=== PATIENT | female | born 1995 | race Hispanic/Latino ===

== ENCOUNTER 2022-11-15 05:59 | Inpatient (IN) | payer BC, SELFPAY ==
[2022-11-15] VITALS (213 sets, daily range): BP systolic 71–136; BP diastolic 39–94; PULSE 53–256; RESP 16–18; TEMP 36.3–37.3; O2SAT 79–100; BMI 31.6
[2022-11-15 06:45] LABS: Basophils Absolute Auto 0.1 K/mm3 (0.0-0.1); Basophils Percent Auto 0.6 % (0.2-1.2); Eosinophils Absolute Auto 0.1 K/mm3 (0-0.3); Eosinophils Percent Auto 1.1 % (0-4.4); Hematocrit 36.7 % (37.0-47.0); Hemoglobin 12.1 g/dL (12.0-15.0); Lymphocytes Percent Auto 12.6 % (18.3-44.2); Mean Corpuscular Hemoglobin 31.7 pg (26-34); Mean Corpuscular Volume 96.1 fl (80-100); Mean Platelet Volume 10.1 fl (7.4-10.4); Monocytes Absolute Auto 0.6 K/mm3 (0.1-0.6); Monocytes Percent Auto 5.7 % (2.6-8.5); Neutrophils Absolute Auto 8.1 K/mm3 (1.3-6.7); Platelet Count Result 233 k/mm3 (150-375); Red Blood Count 3.82 M/mm3 (4.2-5.4); Red Cell Distribution Width 15.4 % (11.5-14.5); White Blood Count 10.3 K/mm3 (4.5-10.0)
[2022-11-15] MEDS: LACTATED RINGERS 1,000 ML 125 ML IV CONT ×5 (07:10→18:26)
[2022-11-15] MEDS: OXYTOCIN 30 UNITS/NS 500 ML 30 UNITS/500 ML BAG 6 UNITS IV CONT (07:11)
--- NOTE | 2022-11-15 07:27 | LDADM ---
This patient, Calista Parks, was admitted to Labor/Delivery/Recovery 106 on 11/15/22 at 05:59. Plans for labor, pain management and were discussed with patient. Patient/family oriented to hospital policies and general routines including ID bracelet, bed and alarms, visiting hours, pain management, procedures, bathroom and other care routines, personal items, smoking policy, room service/diet and guest tray routines, security routines, and visiting hours. Patient/Family are encouraged to report perceived risks to care and to ask questions if they do not understand what they are told or what they should do. See OBIX for further documentation.
--- NOTE | 2022-11-15 08:11 | PM.IMHP ---
H&P: HPI History of Present Illness Date/Time: 11/15/22 08:11 Chief Complaint: Induction of labor Narrative: Patient admitted for MIL. She is at 40 weeks with an EDC 11/15/22 by LMP 02/08/22 consistent with second trimester ultrasound. PNC significant for asthma which has been controlled since starting on steroid inhaler in second trimester. She also had a second trimester ultrasound which showed possible ASD, subsequent echo negative for septal defect. Labs reviewed. GBS neg. She has been informed of risk benefits of induction vs spontaneous labor and risk of prolonged gestation. She has opted for social induction at 40 weeks. Review of Systems Review of Systems: All systems reviewed & are unremarkable except as noted in HPI and below Constitutional: Constitutional: Reports no additional constitutional complaints and Denies headache(s) Eyes: Eyes: Denies spots in vision ENT: Reports system reviewed and no additional complaints, except as documented and Denies headache(s) Cardiovascular: Cardiovascular: Denies chest pain and Denies dyspnea Respiratory: Respiratory: Denies dyspnea Gastrointestinal: Gastrointestinal: Reports no additional gastrointestinal complaints Genitourinary: Genitourinary: Reports amenorrhea Musculoskeletal: Musculoskeletal: Reports no additional musculoskeletal complaints Integumentary/Breasts: Skin/Breast: Denies breast mass and Denies rash Neurologic: Denies headache(s) Psychiatric: Psychiatric: Reports no additional psychiatric complaints [facility] Past Medical History Medical History Allergies Family History Family History Grandparent Heart disease Other Diabetes mellitus Other History of cancer Father Hypertension Mother Thyroid disease Social History Social History Smoking status: Never smoker Alcohol intake: never Substance use: never Substance use type: does not use Lack of Transportation: No Lack of Food: Never True Current Housing: I Have Housing Concerned About Future Housing: No Difficulty Paying Gas/Electric Bills: No Difficulty Paying for Meds: No Currently Unemployed: No Education: Associate Degree Difficulty w/ Childcare or Family Care: No Living arrangements: with family Gender identity (if verbalized by the patient): Female Sexual Orientation (if Verbalized by the Patient): Straight or Heterosexual Spiritual care concerns: No Meds Home Medications and Allergies Home Medications Medication Instructions Recorded Confirmed Type prenat.vits,arminda,xem-[id number]-[id number] 1 tablet PO DAILY 05/19/22 09/22/22 History albuterol sulfate 90 mcg/actuation 2 puff inhalation Q4H PRN 07/15/22 09/22/22 Rx aerosol inhaler (ProAir HFA) shortness of breath or wheezing #8.5 grams fluticasone propionate 110 1 puff inhalation Q12H #12 grams 08/12/22 09/22/22 Rx mcg/actuation HFA aerosol inhaler (Flovent HFA) inhalational spacing device #1 ea 08/12/22 09/22/22 Rx ferrous sulfate 325 mg (65 mg 650 mg PO DAILY 09/23/22 History iron) tablet (Feosol) aspirin 81 mg tablet 81 mg PO DAILY 10/30/22 10/30/22 History levocetirizine 5 mg tablet (Xyzal) 5 mg PO DAILY 10/30/22 10/30/22 History Allergies Allergy/AdvReac Type Severity Reaction Status Date / Time No Known Allergies Allergy Verified 11/11/22 14:21 Vital Signs Vital Signs - 24 hr 11/15/22 07:10 11/15/22 07:15 11/15/22 07:30 Pulse Rate 87 92 87 Blood Pressure 126/84 136/85 116/68 Oxygen Delivery 11/15/22 07:45 11/15/22 08:00 11/15/22 07:26 Pulse Rate 89 79 Blood Pressure 99/83 L 96/55 L Oxygen Delivery Room Air Exam Const: General: no acute distress Eyes: General: appearance normal, both eyes and all related structures Resp: Effort & Inspection: normal respiratory eff
--- NOTE | 2022-11-15 08:15 | PM.OBPNLAB ---
Pain Control Date/time seen: 11/15/22 08:15 heart tones 140s category 1 irregular contractions mild cervix to 60 minus 2 AROM clear.
[2022-11-15 10:03] LABS: Rapid Plasma Reagin Non-Reactive (NonReactive)
--- NOTE | 2022-11-15 13:47 | WPDANESEPP ---
Anes - Eval Pre Procedure Procedure: Labor Epidural Date/Time: 11/15/22 13:47 Surgeon: Kathe Preop Diagnosis: Labor pain Pre Op Diagnosis: Induction of Labor Patient Data Age: 27 Gender: F Height: 1.57 m Weight: 78.5 kg Last Vital Signs Pulse 92 11/15/22 13:45 BP 114/71 11/15/22 13:45 Pulse Ox 100 11/15/22 13:43 O2 Del Method Room Air 11/15/22 07:26 Allergies Allergy/AdvReac Type Severity Reaction Status Date / Time No Known Allergies Allergy Verified 11/11/22 14:21 Home Medications Medication Instructions Recorded Confirmed Type prenat.vits,arminda,[id number]-uhbr-dwrha 1 tablet PO DAILY 05/19/22 09/22/22 History albuterol sulfate 90 mcg/actuation 2 puff inhalation Q4H PRN 07/15/22 09/22/22 Rx aerosol inhaler (ProAir HFA) shortness of breath or wheezing #8.5 grams fluticasone propionate 110 1 puff inhalation Q12H #12 grams 08/12/22 09/22/22 Rx mcg/actuation HFA aerosol inhaler (Flovent HFA) inhalational spacing device #1 ea 08/12/22 09/22/22 Rx ferrous sulfate 325 mg (65 mg 650 mg PO DAILY 09/23/22 History iron) tablet (Feosol) aspirin 81 mg tablet 81 mg PO DAILY 10/30/22 10/30/22 History levocetirizine 5 mg tablet (Xyzal) 5 mg PO DAILY 10/30/22 10/30/22 History Laboratory Tests 11/15/22 11/15/22 11/15/22 06:33 06:33 06:33 WBC 10.3 K/mm3 H K/mm3 (4.5-10.0) RBC 3.82 M/mm3 L M/mm3 (4.2-5.4) Hgb 12.1 g/dL g/dL (12.0-15.0) Hct 36.7 % L % (37.0-47.0) MCV 96.1 fl fl (80-100) MCH 31.7 pg pg (26-34) MCHC 33.0 g/dl g/dl (32-36) RDW 15.4 % H % (11.5-14.5) Plt Count 233 k/mm3 k/mm3 (150-375) MPV 10.1 fl fl (7.4-10.4) Immature Gran % (Auto) 1.0 % H % (0-0.5) Neut % (Auto) 79.0 % H % (45.5-73.1) Lymph % (Auto) 12.6 % L % (18.3-44.2) [place] % (Auto) 5.7 % % (2.6-8.5) Eos % (Auto) 1.1 % % (0-4.4) Baso % (Auto) 0.6 % % (0.2-1.2) Lymph # (Auto) 1.30 K/mm3 K/mm3 (0.9-3.2) [place] # (Auto) 0.6 K/mm3 K/mm3 (0.1-0.6) Eos # (Auto) 0.1 K/mm3 K/mm3 (0-0.3) Baso # (Auto) 0.1 K/mm3 K/mm3 (0.0-0.1) Abs Immat Gran (auto) 0.10 K/mm3 H K/mm3 (0.00-0.031) Absolute Neuts (auto) 8.1 K/mm3 H K/mm3 (1.3-6.7) Absolute Nucleated RBC 0.0 K/mm3 K/mm3 (0.0-0.012) Nucleated RBC % 0.0 % % (0.0-0.2) RPR Non-reactive (NonReactive) Blood Type A Positive Antibody Screen Negative : gestational age (VIJAY 11/15/22, ) Patient hx anesthesia problems: none Family hx anesthesia problems: none Results Review: All pre-operative results and documents have been reviewed as part of the pre-operative evaluation. [facility] Past Medical History Medical History Allergies Family History Family History Grandparent Heart disease Other Diabetes mellitus Other History of cancer Father Hypertension Mother Thyroid disease Social History Social History Smoking status: Never smoker Alcohol intake: never Substance use: never Substance use type: does not use Lack of Transportation: No Lack of Food: Never True Current Housing: I Have Housing Concerned About Future Housing: No Difficulty Paying Gas/Electric Bills: No Difficulty Paying for Meds: No Currently Unemployed: No Education: Associate Degree Difficulty w/ Childcare or Family Care: No Living arrangements: with family Gender identity (if verbalized by the patient): Female Sexual Orientation (if Verbalized by the Patient): Straight or Heterosexual Spiritual care concerns: No Exam Day of Procedure 11/15/22 13:47 Patient weight: normal
--- NOTE | 2022-11-15 16:11 | P.PNOB_ITS ---
OB - PN: Subj Subjective Date/time seen: 11/15/22 16:11 Interval history: FHT 125-130, Cat 1, Irreg ctx. Continue Pitocin. OB - PN: Obj Data Labs 11/15/22 06:33 Labs: Laboratory Results - last 24 hr 11/15/22 11/15/22 11/15/22 06:33 06:33 06:33 WBC 10.3 H RBC 3.82 L Hgb 12.1 Hct 36.7 L MCV 96.1 MCH 31.7 MCHC 33.0 RDW 15.4 H Plt Count 233 MPV 10.1 Immature Gran % (Auto) 1.0 H Neut % (Auto) 79.0 H Lymph % (Auto) 12.6 L [place] % (Auto) 5.7 Eos % (Auto) 1.1 Baso % (Auto) 0.6 Lymph # (Auto) 1.30 [place] # (Auto) 0.6 Eos # (Auto) 0.1 Baso # (Auto) 0.1 Abs Immat Gran (auto) 0.10 H Absolute Neuts (auto) 8.1 H Absolute Nucleated RBC 0.0 Nucleated RBC % 0.0 RPR Non-reactive Blood Type A Positive Antibody Screen Negative OB - PN A/P Time Spent With Patient Time: Total time spent is greater than 50% in coordination of care (as documented) at patient's floor/unit and/or counseling patient:
[2022-11-15] MEDS: ONDANSETRON INJ 4 MG/2 ML VIAL IV PUSH (20:30)
[2022-11-16] VITALS (281 sets, daily range): BP systolic 67–191; BP diastolic 26–149; PULSE 35–200; RESP 14–21; TEMP 36.2–37.4; O2SAT 72–100
[2022-11-16] MEDS: ACETAMINOPHEN 500 MG TABLET 1000 MG PO (01:20)
[2022-11-16] MEDS: AMPICILLIN 2 GM/NS 100 ML 2 GM/100 ML BAG IVPB (02:35)
[2022-11-16] MEDS: LACTATED RINGERS 1,000 ML 125 ML IV CONT (03:15)
--- NOTE | 2022-11-16 06:13 | PM.OBPNVD ---
OB - PN: Subj Subjective Date/time seen: 11/15/22-2129 fht 150, Cat 2, cervix /-2, IUPC placed. Continue pitocin. OB - PN: Obj Data Labs 11/15/22 06:33 Labs: Laboratory Results - last 24 hr 11/15/22 11/15/22 11/15/22 06:33 06:33 06:33 WBC 10.3 H RBC 3.82 L Hgb 12.1 Hct 36.7 L MCV 96.1 MCH 31.7 MCHC 33.0 RDW 15.4 H Plt Count 233 MPV 10.1 Immature Gran % (Auto) 1.0 H Neut % (Auto) 79.0 H Lymph % (Auto) 12.6 L [place] % (Auto) 5.7 Eos % (Auto) 1.1 Baso % (Auto) 0.6 Lymph # (Auto) 1.30 [place] # (Auto) 0.6 Eos # (Auto) 0.1 Baso # (Auto) 0.1 Abs Immat Gran (auto) 0.10 H Absolute Neuts (auto) 8.1 H Absolute Nucleated RBC 0.0 Nucleated RBC % 0.0 RPR Non-reactive Blood Type A Positive Antibody Screen Negative OB - PN A/P Time Spent With Patient Time: Total time spent is greater than 50% in coordination of care (as documented) at patient's floor/unit and/or counseling patient:
[2022-11-16] MEDS: AMPICILLIN 1 GM/NS 50 ML 1 GM/50 ML BAG IVPB ×3 (06:36→22:48)
[2022-11-16] MEDS: ONDANSETRON INJ 4 MG/2 ML VIAL IV PUSH (07:39)
--- NOTE | 2022-11-16 08:51 | PM.OBPNVD ---
OB - PN: Subj Subjective Date/time seen: 11/16/22 08:51 Interval history: FHT 140, Cat 1, irreg ctx, cervix /-1. Continue Pitocin. OB - PN: Obj Data Labs 11/15/22 06:33 Labs: Laboratory Results - last 24 hr 11/15/22 06:33 RPR Non-reactive OB - PN A/P Time Spent With Patient Time: Total time spent is greater than 50% in coordination of care (as documented) at patient's floor/unit and/or counseling patient:
--- NOTE | 2022-11-16 13:06 | PM.OBPNVD ---
OB - PN: Subj Subjective Date/time seen: 11/16/22 13:06 Interval history: FHT 150 cat 1, cervix small anterior rim, reduces with pushing, 0 station, will continue Pitocin. OB - PN: Obj Data Labs 11/15/22 06:33 OB - PN A/P Time Spent With Patient Time: Total time spent is greater than 50% in coordination of care (as documented) at patient's floor/unit and/or counseling patient:
--- NOTE | 2022-11-16 16:37 | PM.OBPNVD ---
OB - PN: Subj Subjective Date/time seen: 11/16/22 8518 Interval history: +FHT 150 cat 2, Patient pushed for two hours, with pushing descends to +1 but returns to 0, she was recommended for for failure to progress. Discussed risk benefit of section after labor and risk of continuing to push. She agrees to section. OB - PN: Obj Data Labs 11/15/22 06:33 OB - PN A/P Time Spent With Patient Time: Total time spent is greater than 50% in coordination of care (as documented) at patient's floor/unit and/or counseling patient:
[2022-11-16] MEDS: miSOPROStol 200 MCG TABLET 1000 MCG (17:20)
--- NOTE | 2022-11-16 17:48 | W.PM.PROC2 ---
Procedure Note - Detailed Date of Procedure 11/16/22 Pre-op Diagnosis Induction of Labor Post-op Diagnosis Other (Failure to progress) Procedure Performed Primary low transverse section Surgeon Juanjo Archuleta MD Anesthesia Epidural Indications Failure to descend Findings Male infant, 8lb 10 oz, ROT Description of Procedure After informed consent, risks and benefits of the procedure was discussed with the patient. The patient was taken to the operating room where she was placed in the dorsal lithotomy position with leftward tilt. After the prior placed epidural anesthesia was found to be adequate, she was then prepped and draped in the usual sterile fashion. A Pfannenstiel skin incision was made with a scalpel and carried through to the underlying layer of fascia. The fascia was then incised in the midline, extending bilaterally. The fascia was dissected off the rectus muscles bluntly and sharply, superiorly and inferiorly. The rectus muscles were in the midline, and peritoneum was identified and entered bluntly. The pelvic organs were visualized. The bladder blade was then inserted. The vesicouterine peritoneum was identified and entered sharply with Metzenbaum scissors and extended bilaterally and then the bladder flap was created digitally. The low transverse uterine incision was then made with the scalpel and extended with bilateral index fingers in a crescent-shaped fashion. The head was delivered two loose nuchal cords were manually reduced and the rest of the was delivered. The nose and mouth suctioned. The cord was clamped twice and cut. The infant was then handed off to the awaiting pediatric staff. The placenta was then delivered manually. The uterine cavity was sponge curretted. The placental membranes were adherent to cavity. The membranes were removed with ring forceps and sponge curretts until no membranes were visualized in the cavity.The uterine tone was minimal. Uterus was vigorously massage. She had 40units Pitocin in her bag. Instructed anesthesia to administer 0.2mg Methergine IM. Tone improve slightly. 1000ucg of Cytotec was inserted rectally. She was given Trenexamic acid. Uterine tone improved to good. The uterus was then exteriorized. The uterine incision was then closed with 0 vicryl in a running locked fashion. A figure of eight of 0 vicryl at the right of incision was used for hemostasis. Hemostasis noted. A second layer of 0 vicryl was used in an imbricating fashion for hemostasis. A figure of eight 0 vicryl was used for hemostasis. Hemostasis noted. The uterus was then returned to the abdomen. Bilateral gutters were cleared off all clots and debris. The uterine incision was noted to be hemostatic. Interceed placed on uterine incision and vertically on front of uterus. The muscle bellies were inspected and noted to be hemostatic. The subfascial layer was noted to be hemostatic, and the fascia was closed with 0 Vicryl in a running fashion. The subcutaneous layer was then closed with 3-0 Vicryl in a subcutaneous fashion. The skin was closed with dissolveable sree. Skin dermabond applied at incision. All instruments, needle, and lap counts were correct x3. The patient was taken to the recovery room in stable condition. Estimated Blood Loss 1,065 Urine Output 100 Drains No Packing No Pathology Yes (placenta and cord) Complications No immediate complications Condition Stable Disposition Floor [facility] Billing Surgery - Charge Forward: Surgery Billing
[2022-11-16] MEDS: TRANEXAMIC ACID 1,000MG/ISO100 1,000 MG/100 ML BAG 200 MG IVPB (19:31)
--- NOTE | 2022-11-16 20:35 | OBPPTRN ---
Patient transferred to post room #286 via Stretcher. Support person present. Oriented to unit, room, information board, rooming in, admission packet and security measures. Patient verbalizes understanding.
[2022-11-16] MEDS: DEXTROSE 5%/0.45% SOD CHL 1,000 ML 125 ML IV CONT (22:48)
[2022-11-16] MEDS: CLINDAMYCIN 900 MG/D5W 50 ML 900 MG/50 ML PIGGYBACK 50 MG IVPB (23:20)
[2022-11-16] MEDS: METHYLERGONOVINE MALEATE 0.2 MG TABLET PO (23:20)
[2022-11-17 04:58] VITALS: BP 119/76; PULSE 86; RESP 18; TEMP 36.9; O2SAT 99
[2022-11-17] MEDS: KETOROLAC 30 MG/ML VIAL (*BKC) IV PUSH (05:00)
[2022-11-17] MEDS: METHYLERGONOVINE MALEATE 0.2 MG TABLET PO (05:00)
[2022-11-17] MEDS: AMPICILLIN 1 GM/NS 50 ML 1 GM/50 ML BAG IVPB (05:00)
[2022-11-17 05:27] LABS: Basophils Absolute Auto 0.1 K/mm3 (0.0-0.1); Basophils Percent Auto 0.5 % (0.2-1.2); Eosinophils Absolute Auto 0.1 K/mm3 (0-0.3); Eosinophils Percent Auto 0.2 % (0-4.4); Hematocrit 34.3 % (37.0-47.0); Hemoglobin 11.4 g/dL (12.0-15.0); Immature Granulocyte Absolute 0.13 K/mm3 (0.00-0.031); Immature Granulocyte Percent A 0.5 % (0-0.5); Lymphocytes Absolute Auto 1.06 K/mm3 (0.9-3.2); Lymphocytes Percent Auto 4.5 % (18.3-44.2); Mean Corpuscular HGB Conc 33.2 g/dl (32-36); Mean Corpuscular Hemoglobin 31.9 pg (26-34); Mean Corpuscular Volume 96.1 fl (80-100); Mean Platelet Volume 10.3 fl (7.4-10.4); Monocytes Absolute Auto 1.2 K/mm3 (0.1-0.6); Monocytes Percent Auto 5.2 % (2.6-8.5); Neutrophils Absolute Auto 21.1 K/mm3 (1.3-6.7); Neutrophils Percent Auto 89.1 % (45.5-73.1); Platelet Count Result 223 k/mm3 (150-375); Red Blood Count 3.57 M/mm3 (4.2-5.4); Red Cell Distribution Width 15.4 % (11.5-14.5); White Blood Count 23.7 K/mm3 (4.5-10.0)
[2022-11-17 07:50] VITALS: BP 105/73; PULSE 75; RESP 16; TEMP 37; O2SAT 96
--- NOTE | 2022-11-17 08:08 | P.PNOB_ITS ---
OB - PN: Subj Subjective Date/time seen: 11/17/22 08:08 Interval history: She states pain is 2/10 laying down when she moves increases to 8. Minimal lochia. Has not set up in a chair. No nausea. No flatus no leg pain. OB - PN: Obj Data Labs 11/17/22 04:30 Labs: Laboratory Results - last 24 hr 11/17/22 04:30 WBC 23.7 H RBC 3.57 L Hgb 11.4 L Hct 34.3 L MCV 96.1 MCH 31.9 MCHC 33.2 RDW 15.4 H Plt Count 223 MPV 10.3 Immature Gran % (Auto) 0.5 Neut % (Auto) 89.1 H Lymph % (Auto) 4.5 L [place] % (Auto) 5.2 Eos % (Auto) 0.2 Baso % (Auto) 0.5 Lymph # (Auto) 1.06 [place] # (Auto) 1.2 H Eos # (Auto) 0.1 Baso # (Auto) 0.1 Abs Immat Gran (auto) 0.13 H Absolute Neuts (auto) 21.1 H Absolute Nucleated RBC 0.0 Nucleated RBC % 0.0 OB - PN A/P Assessment and Plan (1) Status post section: Code(s): Z98.891 - History of uterine scar from previous surgery Status: Acute Plan POD1 s/p Primary c/s for failure to descend. She is doing well. Encourage sitting in chair ambulation/ambulation. Full liquid diet. Abdominal binder. May consider a pass to see baby this afternoon. Will discontinue prophylactic IV antibiotics after next dose. Time Spent With Patient Time: Total time spent is greater than 50% in coordination of care (as documented) at patient's floor/unit and/or counseling patient: Exam Const: General: comfortable and no acute distress Eyes: General: appearance normal, both eyes and all related structures Resp: Effort & Inspection: normal respiratory effort Auscultation: clear to auscultation bilaterally Cardio: Rate: regular rate GI: Other: minimal bowel sounds, uterus at umbilicus appropriate tenderness, incision intact no erythema or drainage Neuro: General: oriented to person, oriented to place and oriented to time Extrem: General: normal to inspection and no calf tenderness Psych: Mental Status: mental status grossly normal Affect: normal affect
[2022-11-17] MEDS: ACETAMINOPHEN 325 MG TABLET 650 MG PO ×2 (08:31→19:00)
[2022-11-17] MEDS: MULTIVIT/MIN/PREN/FOL AC/IRON TABLET 1 TAB PO (08:31)
[2022-11-17] MEDS: DOCUSATE SODIUM 100 MG CAPSULE PO ×2 (08:32→19:00)
[2022-11-17] MEDS: CLINDAMYCIN HCL 150 MG CAP 300 MG PO ×2 (09:01→20:57)
[2022-11-17 12:10] VITALS: BP 124/80; PULSE 96; RESP 18; TEMP 36.3; O2SAT 100
[2022-11-17] MEDS: IBUPROFEN 600 MG TABLET PO (12:27)
--- NOTE | 2022-11-17 12:35 | PC.NURSE ---
Patient left at 12:35 11/17/22 for a therapeutic leave of absence to see her baby.
--- NOTE | 2022-11-17 14:17 | WPDANLDPN2 ---
Anes-Prog Note L&D Date/Time: 11/17/22 14:17 Neuro status: Neuro function grossly intact. Vital Signs: Last Vital Signs Temp 36.3 C L 11/17/22 12:10 Pulse 96 11/17/22 12:10 Resp 18 11/17/22 12:10 BP 124/80 11/17/22 12:10 Pulse Ox 100 11/17/22 12:10 O2 Del Method Room Air 11/17/22 11:30 Pain score (VAS): 0 I/O: Intake & Output 11/16/22 11/17/22 11/17/22 23:59 07:59 15:59 Intake Total 50 550 240 Output Total 1525 750 Balance -1475 -200 240 Patient feedback: Patient satisfied with anesthetic care.
--- NOTE | 2022-11-17 14:18 | WPDANLDNPN2 ---
Anes-Prog Note L&D-Neuraxial Date/Time: 11/17/22 14:18 Patient feedback: Patient satisfied with post-operative pain management.
--- NOTE | 2022-11-17 16:55 | PC.NURSE ---
Pt on therapeutic leave of absence, unable to complete 16:00 assessment and vital signs at this time.
--- NOTE | 2022-11-17 18:30 | PC.NURSE ---
Patient arrived back from pass and returned to room.
[2022-11-17 19:00] VITALS: BP 113/70; PULSE 96; RESP 18; TEMP 36.4
[2022-11-17] MEDS: HYDROcodone/acetaminophen (*CRX) 5-325 MG TABLET 1 TAB PO (23:15)
[2022-11-18] MEDS: HYDROcodone/acetaminophen (*CRX) 5-325 MG TABLET 1 TAB PO ×3 (04:45→14:50)
[2022-11-18] MEDS: SIMETHICONE 80 MG TAB.CHEW PO ×2 (04:45→14:00)
[2022-11-18] MEDS: IBUPROFEN 600 MG TABLET PO ×2 (04:45→10:45)
--- NOTE | 2022-11-18 07:59 | PM.OBPNVD ---
OB - PN: Subj Subjective Date/time seen: 11/18/22 07:59 Interval history: She states adequate pain control, mild lochia, she has ambulated and flatus, no leg pain. OB - PN: Obj Data Labs 11/17/22 04:30 OB - PN A/P Assessment and Plan (1) Status post section: Code(s): Z98.891 - History of uterine scar from previous surgery Status: Acute Assessment and Plan: POD2. She is doing well. Request discharge to home to see her baby. Discharge precautions discussed. Time Spent With Patient Time: Total time spent is greater than 50% in coordination of care (as documented) at patient's floor/unit and/or counseling patient: Exam Const: General: comfortable and no acute distress Resp: Effort & Inspection: normal respiratory effort Auscultation: clear to auscultation bilaterally Cardio: Rate: regular rate GI: Other: incision intact clean dry, good BS throughout Psych: Mental Status: mental status grossly normal Affect: normal affect
[2022-11-18 08:20] VITALS: BP 111/70; PULSE 82; RESP 18; TEMP 37.1; O2SAT 99
--- NOTE | 2022-11-18 10:00 | PC.NURSE ---
PT introductions made and plan of care discussed per post , pain management, breast feeding, pumping, daily care activities and pending discharge to home. PT sole recipient of such instructions and no barriers to learning identified at this time. PT received such instructions per one to one discussion, mom baby care guide and demonstrations this shift. PT verbalized understanding of such care.
[2022-11-18] MEDS: CLINDAMYCIN HCL 150 MG CAP 300 MG PO (10:44)
[2022-11-18 10:45] VITALS: PULSE 82; RESP 18; O2SAT 99
[2022-11-18] MEDS: DOCUSATE SODIUM 100 MG CAPSULE PO (10:45)
[2022-11-18] MEDS: MULTIVIT/MIN/PREN/FOL AC/IRON TABLET 1 TAB PO (10:45)
[2022-11-18 11:00] VITALS: BP 111/70; PULSE 82; RESP 18; TEMP 37.1; O2SAT 99
--- NOTE | 2022-11-18 13:45 | PC.NURSE ---
Patient was given the opportunity to view the discharge video Mother & Baby Care, The First Two Weeks and to ask questions. Patient declined viewing the video and has been given the mother/baby guide for home reference.PT received discharge instructions per protocol and verbalized understanding of such care.
--- NOTE | 2022-11-18 14:00 | PC.NURSE ---
PT discharged to home ambulatory accompanied by her family and taken to waiting car. Follow up appts confirmed
--- NOTE | 2022-11-24 11:23 | P.HP_ITS ---
H&P: HPI History of Present Illness Date/Time: 11/24/22 11:23 [facility] Past Medical History Medical History Allergies Family History Family History Grandparent Heart disease Other Diabetes mellitus Other History of cancer Father Hypertension Mother Thyroid disease Social History Social History Smoking status: Never smoker Alcohol intake: never Substance use: never Substance use type: does not use Lack of Transportation: No Lack of Food: Never True Current Housing: I Have Housing Concerned About Future Housing: No Difficulty Paying Gas/Electric Bills: No Difficulty Paying for Meds: No Currently Unemployed: No Education: Associate Degree Difficulty w/ Childcare or Family Care: No Living arrangements: with family Gender identity (if verbalized by the patient): Female Sexual Orientation (if Verbalized by the Patient): Straight or Heterosexual Spiritual care concerns: No Meds Home Medications and Allergies Home Medications Medication Instructions Recorded Confirmed Type prenat.vits,arminda,raf-ewrl-njlyw 1 tablet PO DAILY 05/19/22 09/22/22 History albuterol sulfate 90 mcg/actuation 2 puff inhalation Q4H PRN 07/15/22 09/22/22 Rx aerosol inhaler (ProAir HFA) shortness of breath or wheezing #8.5 grams fluticasone propionate 110 1 puff inhalation Q12H #12 grams 08/12/22 09/22/22 Rx mcg/actuation HFA aerosol inhaler (Flovent HFA) inhalational spacing device #1 ea 08/12/22 09/22/22 Rx levocetirizine 5 mg tablet (Xyzal) 5 mg PO DAILY 10/30/22 10/30/22 History hydrocodone 5 mg-acetaminophen 325 1 tablet PO Q4H PRN pain #20 tabs 11/18/22 Rx mg tablet Allergies Allergy/AdvReac Type Severity Reaction Status Date / Time No Known Allergies Allergy Verified 11/11/22 14:21
--- NOTE | 2022-11-24 11:23 | PM.OBDSVD ---
DS: Admitting Diagnosis Discharge Date 11/18/22 Admitting Diagnosis Induction of labor DS: Discharge Diagnosis Discharge Diagnosis Plan Failure to descend Intrauterine delivered. OB - DS: Summary Hospital Course Hospital Course: She was admitted for MIL. Labor significant for failure to descend. She had an uncomplicated primary section. Postoperatively she did well. Baby was transferred to [facility]. On post op day 1 she had adequate pain control, vitals stable, she was allowed a pass to see the baby. She returned. On post op day two she had flatus, ambulated without problems, tolerated regular diet and low mild. She requested discharge to home. Discharge precautions discussed. OB Procedures : Ultrasound OB Procedures Intrapartum: OB Procedures: : None Peripartum Data Infant Delivery Method: Section Procedures: Procedures Operation Date: 11/16/22 16:15 Actual Procedure Side Surgeon p Section Not Applicable Juanjo Archuleta MD complications: none Status at Discharge Functional status at discharge: independent ambulation Time Spent with Patient Time attestation: Total time spent providing and/or coordinating discharge services: Exam Const: General: cooperative Orientation/consciousness: oriented to person, oriented to place and oriented to time HENMT: Face/Nose/Sinus: Normal external nose present Eyes: General: appearance normal, both eyes and all related structures Resp: Effort & Inspection: normal respiratory effort GI: Inspection: normal to inspection Other: incision clean and intact and dry Skin: General skin exam: normal color Neuro: General: oriented to person, oriented to place and oriented to time Extrem: General: normal to inspection and no calf tenderness Psych: Appearance: grossly normal Mental Status: mental status grossly normal Discharge Plan Discharge Attending physician on discharge: Juanjo Archuleta Consulting providers: Tracey Torres ; Arpita Haas Discharging Clinician: Juanjo Archuleta Patient Disposition: Home, Self-Care Activity: no straining, may drive after 2 weeks and pelvic rest Diet: regular Discharge Instructions: Education: Mom and Baby Guide Given to: Mother Follow-Up: Call your delivering provider's office for an appointment to be seen in: 1 Week Mom and baby should come to the [facility] for the follow-up appointment. Appointment Date/Time: November 19, 2022 at 9:00 am What to expect at your follow-up visit: Blood Pressure Check Call [phone] if you are unable to keep your appointment time. BREAST CARE: * Wear a snug supportive bra. * For engorgement discomfort: Breast Feeding: * Apply warm moist washcloths * Express milk as needed to relieve engorgement * Wear loose clothing Bottle Feeding: * May apply ice packs * For sore nipples: * Identify correct latch-on * Apply warm moist washcloths before and after nursing * Air dry nipples after nursing * May apply Lansinoh cream to nipples ABDOMINAL INCISION: (if applicable) * Allow incision to air dry * Do NOT use lotions for powders on your incision * When showering, allow soap and water to run over the incision, but do not wash incision PERINEAL CARE: * Until bleeding stops, use your jonnathan bottle after urinating * Change your pad frequently throughout the day * No tub baths until seen by your physician - You may shower ACTIVITY: * Rest as much as possible. * Do not exercise or lift anything heavier than your baby (such as laundry or other children.) * Avoid stairs or driving as much as possible. * Do not put anything into the vagina. No douching, tampons, or sexual activity until seen by physician. NOTIFY PHYSICIAN IF YOU HAVE ANY QUESTIONS OR IF ANY OF THE F
== END 2022-11-18 14:00 | disposition home or self-care (01) | DRG 788 ==
LOC: ANHLDR 11-16 13:41 → ANHOB2 11-16 20:49
PROVIDERS: Admitting Provider Obstetrics & Gynecology; PCP Physician Assistant; Visit Provider Obstetrics & Gynecology
PROC: (CPT 59514; principal; 2022-11-16 16:15)
DX: O99.52 Diseases of the respiratory system complicating childbirth (principal); Z37.0 Single live birth; Z3A.40 40 weeks gestation of pregnancy; J45.909 Unspecified asthma, uncomplicated; O42.02 Full-term premature rupture of membranes, onset of labor within 24 hours of rupture; O34.211 Maternal care for low transverse scar from previous cesarean delivery; O32.4XX0 Maternal care for high head at term, not applicable or unspecified; O62.2 Other uterine inertia
CPT/HCPCS: 36415; 85025; 86592; 86850; 86900; 86901; A9270; J0290; J0456; J1885; J2210; J2274; J2405; J2590; J2795; J7120

== ENCOUNTER 2024-04-10 15:31 | Outpatient (CLI) | payer OTHER, SELFPAY ==
--- NOTE | ~2024-04-10 | US_ITS ---
EXAMINATION: US pelvic complete w TV DATE: 04/10/2024 16:48 INDICATION: R10.2 - Pelvic and perineal pain TECHNIQUE: Multiple transabdominal and endovaginal sonographic images of the pelvis were obtained. COMPARISON: None. FINDINGS: Uterus: 7.3 x 4.8 x 5.2 cm. Retroverted. Endometrial complex measures 17 mm. Hypoechoic halo surround ing the endometrium. Irregular endometrial/myometrial junction. Heterogeneous uterine parenchymal ech ogenicity with increased vascularity. Right Ovary: 3.6 x 2.0 x 2.1 cm. Vascular flow is present. No adnexal mass. Left Ovary: 3.1 x 2.0 x 1.8 cm. Vascular flow is present. No adnexal mass. There is small volume physiologic free fluid in the pelvis. IMPRESSION: Uterine and endometrial findings that are suggestive of adenomyosis. Mild endometrial thickening, using 16 mm at the upper limits of normal for a secretory phase examinat ion. Reviewed, dictated and finalized at location K. IMPRESSION: Uterine and endometrial findings that are suggestive of adenomyosis. Mild endometrial thickening, using 16 mm at the upper limits of normal for a se cretory phase examination.
== END 2024-04-10 15:32 | disposition home or self-care (01) ==
PROVIDERS: PCP Physician Assistant; Visit Provider Nurse Practitioner Obstetrics & Gynecology
DX: R10.2 Pelvic and perineal pain (principal)
CPT/HCPCS: 76830; 76856

== ENCOUNTER 2024-06-07 08:37 | Outpatient (CLI) | payer OTHER, SELFPAY ==
--- NOTE | ~2024-06-07 | US_ITS ---
EXAMINATION: US abdomen complete DATE: 06/07/2024 09:26 INDICATION: Left upper quadrant abdominal pain TECHNIQUE: Multiple grayscale and Doppler ultrasound images of the abdomen were obtained. COMPARISON: None FINDINGS: Abdominal aorta is normal in caliber throughout. Measuring 2.2 cm proximally tapering to 1.4 cm at th e aortic bifurcation. The inferior vena cava is normal. The pancreatic head and body are normal in ap pearance. The pancreatic tail is not visualized. Liver has normal echogenicity and contour, with a s mooth surface. No liver lesion identified. No intrahepatic biliary duct dilation suspected. Portal ve nous flow was seen in the hepatopetal, normal direction and has normal Doppler waveform. The gallblad vale is normal in appearance. There is no cholelithiasis. The common bile duct measures 3 mm, which i s normal. Sonographic Bermudez sign was reported as negative by the neonatal surgeon. There is normal renal contour and echogenicity bilaterally. The right kidney measures 9.6 x 3.4 x 5.1 cm and the left 9.8 x 5.3 x 4.7 cm. There are no focal renal lesions identified. There is no hydronephrosis. Normal sple en measuring 10.8 cm maximal length. IMPRESSION: 1. Normal abdominal ultrasound. Reviewed, dictated and finalized at location B.
== END 2024-06-07 08:38 | disposition home or self-care (01) ==
LOC: ANHIMG 08:40
PROVIDERS: PCP Physician Assistant; Visit Provider Physician Assistant
DX: R10.12 Left upper quadrant pain (principal)
CPT/HCPCS: 76700

== ENCOUNTER 2024-08-11 08:59 | Outpatient (CLI) | payer OTHER, SELFPAY ==
[2024-08-14 15:47] LABS: H pylori, Urea Breath NOT DETECTED (NOT DETECTED)
== END 2024-08-11 09:00 | disposition home or self-care (01) ==
LOC: ANHLAB 09:01
PROVIDERS: PCP Physician Assistant; Visit Provider Physician Assistant
DX: R10.10 Upper abdominal pain, unspecified (principal)
CPT/HCPCS: 83013

== ENCOUNTER 2024-09-03 08:56 | Outpatient (CLI) | payer OTHER, SELFPAY ==
--- NOTE | ~2024-09-03 | XR_ITS ---
EXAMINATION: XR UGI w small bowel DATE: 09/03/2024 10:57 INDICATION: Left upper quadrant abdominal pain TECHNIQUE: The patient drank thick barium, gas-producing crystals, and thin barium. Conventional supi ne abdomen radiographs and fluoroscopic spot radiographs of the esophagus, stomach, and proximal smal l bowel were obtained. Additional overhead radiographs were obtained during the transit through the s mall bowel. Spot fluoroscopic images of the small bowel were obtained upon contrast reaching the cec um. Fluoroscopy exposure time was 1.7 minutes. A total of 570 fluoroscopic images and 4 overhead radi ographs were obtained. Total DAP was 27.5 Gycm^2. COMPARISON: None. FINDINGS: The esophagus is normal without mass or stricture. Esophageal motility is normal. There is no hiatal hernia. There was no gastroesophageal reflux with provocative maneuvers. The stomach and proximal sma ll bowel are normal. Transit time from the stomach to proximal colon was approximately 1 hour. There is normal caliber and mucosal fold pattern throughout the small bowel. Terminal ileum is normal. No tethering or abnorma l mass effect observed upon the small bowel with real-time fluoroscopy. IMPRESSION: 1. Normal upper GI and small bowel study. Reviewed, dictated and finalized at location A. [employer]
== END 2024-09-03 08:57 | disposition home or self-care (01) ==
PROVIDERS: PCP Physician Assistant; Visit Provider Physician Assistant
DX: R10.12 Left upper quadrant pain (principal)
CPT/HCPCS: 74240; 74248

== ENCOUNTER 2024-10-15 09:56 | Emergency (ER) | payer OTHER, SELFPAY ==
[2024-10-15 10:06] VITALS: BP 129/74; PULSE 126; RESP 16; TEMP 39.2; O2SAT 97
--- NOTE | 2024-10-15 11:00 | ED_ITS ---
HPI - URI/Sore Throat General Chief Complaint: Upper Respiratory Infection Stated Complaint: cough/body aches Time Seen by Provider: 10/15/24 10:36 Source: patient and RN notes reviewed Mode of arrival: ambulatory Limitations: no limitations History of Present Illness HPI Narrative: Patient presents today complaining of a 3 day history of sore throat, fever, body aches, cough, headache, left ear pain, shortness of breath with exertion. She currently rates her pain 7/10 and has been taking Robitussin and ibuprofen with mild relief. No history of asthma. She is a nonsmoker. Related Data Home Medications ?Medication ?Instructions ?Recorded ?Confirmed ?Last Taken ?Type prenat.vits,arminda,mjr-[id number] 1 tablet PO DAILY 05/19/22 02/01/24 10/30/22 08:00 History levocetirizine 5 mg tablet (Xyzal) 5 mg PO DAILY 10/30/22 02/01/24 10/30/22 08:00 History Allergies Allergy/AdvReac Type Severity Reaction Status Date / Time No Known Allergies Allergy Verified 10/15/24 10:46 Review of Systems Review of Systems: CONSTITUTIONAL: + body aches EYES: Denies visual changes, redness, or discharge. ENT: Denies rhinorrhea, congestion. + sore throat, left ear CARDIOVASCULAR: Denies chest pain, palpitations, or edema. RESPIRATORY: + cough, shortness of breath with exertion GASTROINTESTINAL: Denies abdominal pain, nausea, vomiting, or diarrhea. GENITOURINARY: Denies dysuria or hematuria. SKIN: Denies rash, itching, or wounds. MUSCULOSKELETAL: Denies back pain, joint pain, or myalgia. NEUROLOGIC: Denies headache, numbness, tingling, or weakness. PSYCH: Denies depression or anxiety. [facility] Past Medical History Medical History Allergies Family History Family History Grandparent Heart disease Other Diabetes mellitus Other History of cancer Father Hypertension Mother Thyroid disease Social History Social History Smoking status: Never smoker Alcohol intake: never Substance use: never Substance use type: does not use Lack of Transportation: No Lack of Food: Never True Current Housing: I Have Housing Concerned About Future Housing: No Difficulty Paying Gas/Electric Bills: No Difficulty Paying for Meds: No Currently Unemployed: No Education: Associate Degree Difficulty w/ Childcare or Family Care: No Living arrangements: with family Gender identity (if verbalized by the patient): Female Sexual Orientation (if Verbalized by the Patient): Straight or Heterosexual Spiritual care concerns: No Comments At time of signature, I have reviewed and agree with nursing past medical, surgical, social and family history unless otherwise noted. Please see nursing chart for further information. There is no relevant family history pertinent to the presenting complaint Exam Narrative: GENERAL: Mildly ill-appearing, well-nourished, and in no acute distress. HEAD: Normocephalic, atraumatic. EYES: EOMI. No redness or drainage. Conjunctivae normal. ENT: Mucous membranes pink and moist. Nares mildly congested. No rhinorrhea. TMs normal bilaterally. Throat normal. Uvula midline. NECK: Normal AROM. Supple. No lymphadenopathy. CHEST: No respiratory distress. Clear to auscultation. HEART: Regular rate and rhythm. No murmur appreciated. EXTREMITIES: Normal range of motion. No edema. SKIN: Warm, dry, no rash. Capillary refill normal. Normal skin turgor. NEURO: No focal deficits. Alert and oriented x3. Gait steady. PSYCH: Normal affect. No signs of depression or anxiety. Course Course Level of Care: Express Care Visit Vital Signs Vital signs: Vital Signs Temperature 102.6 F H 10/15/24 10:06 Pulse Rate 126 H 10/15/24 10:06 Respiratory Rate 16 10/15/24 10:06 Blood Pressure 129/74 10/15/24 10:06 Pulse Oximetry 97 10/15/24 10:06 Oxygen Delivery Room Air 10/15/24 10:06 Temperature 102.6 F H 10/15/24 10:06 Pulse Rate 126 H 10/15/24 10:06 Respiratory Rate 16 10/15/24 10:06 Blood Pressure 129/74 10/15/24 10:06 Pulse Oximetry 97 10/15/24 10:06 Oxygen Delivery Room Air 10/15/24 10:06 Reviewed. Tachycardia likely due to fever. MDM - URI/Sore Throat MDM Narrative Medical decision making narrative: COVID negative. Influenza a positive. Prescription for Tamiflu sent to pharmacy. Anticipatory guidance given. Differential Diagnosis Differential diagnosis: Likely upper respiratory infection, otitis media, viral infection, influenza, pharyngitis and other (COVID-19) Lab Data Attestation: I reviewed the patient's lab results. Labs: Lab Results 10/15/24 10/15/24 Range/Units 11:01 11:02 POC Influenza A Ag Positive (Negative) POC Influenza B Ag Negative (Negative) POC SARS CoV-2 Ag Negative (Negative) Critical Care Time Critical Care Time Critical Care Time: No Discharge Plan Discharge Clinical Impression: Influenza A Patient Disposition: Home, Self-Care Condition: Stable Instructions: Influenza (DC) Additional Instructions: You have tested positive for influenza A. Please take the Tamiflu as prescribed. Continue [id number] medication as needed for fever, pain cough. If symptoms worsen, please go to the ER immediately for further evaluation and treatment. Your blood pressure was elevated above 120/80 today at Urgent Care. This puts you above the threshold for follow up. Please schedule a followup visit with your personal physician as soon as possible, for further evaluation and treatment. Even blood pressure exceeding 120/80 may indicate pre-hypertension. Patient Language: Irish Prescriptions: New oseltamivir [Tamiflu] 75 mg capsule 75 mg PO Q12H 5 Days Qty: 10 0RF No Action prenat.vits,arminda,scw-unii-qvmej Tablet 1 tablet PO DAILY albuterol sulfate [ProAir HFA] 90 mcg/actuation HFA aerosol inhaler 2 puff inhalation Q4H PRN (Reason: shortness of breath or wheezing) Qty: 8.5 0RF fluticasone propionate [Flovent HFA] 110 mcg/actuation HFA aerosol inhaler 1 puff inhalation Q12H Qty: 12 0RF (DME) inhalational spacing device Spacer See Rx Instructions .Route Qty: 1 0RF Rx Instructions: As directed levocetirizine [Xyzal] 5 mg Tablet 5 mg PO DAILY Follow-up/Referrals: Elle,ODIN Patel [Primary Care Provider] - Stand Alone Forms: Work/School Release IP Time of Disposition: 11:02
[2024-10-15 11:03] LABS: EDCOVIDSCREEN Negative (Negative)
[2024-10-15 11:03] LABS: EDINFLUASCREEN Positive (Negative); EDINFLUBSCREEN Negative (Negative)
== END 2024-10-15 11:05 | disposition home or self-care (01) ==
PROVIDERS: Emergency Provider Nurse Practitioner; PCP Physician Assistant
DX: J10.1 Influenza due to other identified influenza virus with other respiratory manifestations (principal); Z20.822 Contact with and (suspected) exposure to COVID-19
CPT/HCPCS: 87426; 87804; 99213; G0463

== ENCOUNTER 2024-12-03 08:19 | Outpatient (CLI) | payer OTHER, SELFPAY ==
--- NOTE | ~2024-12-03 | NM_ITS ---
EXAMINATION: NM hepatobiliary w pharm DATE: 12/03/2024 13:43 INDICATION: Upper abdominal pain. COMPARISON: Ultrasound 06/07/2024 TECHNIQUE: 5.11 mCi Tc-99m mebrofenin (Choletec) was administered intravenously. Scintigraphic image s of the abdomen were obtained for one hour. Then, 1.1 mcg sincalide (Kinevac) IV was administered, a nd imaging was continued for 30 minutes. FINDINGS: There is normal clearance of radiotracer from the blood pool. There is homogeneous tracer u ptake by the liver. Activity progresses to the bowel and gallbladder. Gallbladder ejection fraction (GBEF) was 81%. Note that most patients with gallbladder dysfunction have GBEF < 35%, which overlaps with the broad normal range of 10-90%. IMPRESSION: 1. Normal hepatobiliary scintigraphy. Reviewed, dictated and finalized at location B.
--- OUTSIDE RECORDS SUMMARY | 2024-12-03 08:40 | XMS_ITS | Data Portability ---
Author Organization [place] [facility] [employer], Main Office Address [address] [place] [address] Assessment No assessment recorded. Plan of Treatment Reminders Order Date Submit Date Provider Last Modified By Organization Details Last Modified Time Details Appointments None recorded. Lab CMP, serum or plasma 2022 023 [email or web address] 4 [facility] (Lab), [address] [place], [address], 3 16:06:33 TSH, serum or plasma 2022 [email or web address] [place] [address] (Lab), [address] [place], [address], 3 16:06:33 T4, free, serum 2022 [email or web address] [place] [address] (Lab), [address] [place], [address], 3 16:06:33 lipid panel, serum 2022 023 EDWARD [facility] (Lab), [address] [place], [address], 3 14:36:13 glycohemogl obin, total, blood 2022 [email or web address] [place] [address] (Lab), [address] [place], [address], 3 16:06:33 iron + total iron-bindin g capacity (TIBC), serum 2022 023 [email or web address] 4 [facility] (Lab), [address] [place], [address], 3 16:06:32 ferritin, serum or plasma 2022 023 [email or web address] 4 [facility] (Lab), [address] [place], [address], 3 16:06:32 CBC w/ auto diff 2022 023 [email or web address] 4 [facility] (Lab), [address] [place], [address], 3 16:06:33 Referral None recorded. Procedures None recorded. Surgeries None recorded. Imaging None recorded. Medication Orders albuterol sulfate HFA 90 mcg/actuati on aerosol inhaler 2022 023 [facility][id number], [address], [place], [place], [id number], 3 16:00:47 Flovent HFA 110 mcg/actuati on aerosol inhaler [email or web address] [place] [address] [facility], [address], [id number], 3 20:35:49 hydrocortis one 2.5 % topical cream with perineal applicator 2022 023 [facility] #[id number], [address], [place], [place], [id number], 3 16:00:45 Patient TargetsNo targets recorded. Patient InstructionsNo instructions recorded. Reason for Referral None Reported. Results Created Date Observation Date Name Description Value Unit Range Abnormal Flag Note LastModifiedBy Organization Detail LastModifiedTime 09/15/20 21 09/14/2021 compl ete PFT* No observ ation record ed. [id number] Not Available 11/24/2022 23:32:07 11/25/19 22 11/23/2021 metha choli ne chall enge* No observ ation record ed. [id number] [facility] (One Call Scheduling) [address] [place], [address], 11/24/2022 23:32:07 12/10/19 22 12/09/2021 CT, chest , w/o contr ast No observ ation record ed. [id number] [facility] [address] [place], [address], 11/24/2022 23:32:07 12/16/19 22 12/09/2021 CT, chest , w/o contr ast No observ ation record ed. [id number] [facility] [address] [place], [address], 11/24/2022 23:32:07 03/19/20 22 01/01/2022 MAMMO , diagn ostic , digit al, bilat eral No observ ation record ed. [id number] [facility] Add On Lab Orders [address] [place], [address], 11/24/2022 23:32:07 Result Notes None recorded. 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 Not Available [facility] 3 23:30:26 Pansinusitis 235290814 Active 2021 Not Available [facility] 3 23:30:26 Upper airway resistance syndrome 143475906 Active 2021 Not Available [facility] 3 23:30:26 Acute rhinosinusiti s 169888370 Active 2021 Not Available [facility] 3 23:30:26 Acute urinary tract infection 745230723 Active 2021 Not Available [facility] 3 23:30:26 Allergic rhinitis 10378235 Active 2021 Not Available [facility] 3 23:30:27 Chronic cough 59456118 Active 2021 Not Available [facility] 3 23:30:27 Candidiasis of vagina 54356171 Active 2021 Not Available [facility] 3 23:30:27 Asthma 948410841 Active 2022 SHAYNA Sloan [address], [place], [address] , [employer] [facility] [facility] 3 15:58:49 Iron deficiency anemia 31077282 Active 2022 SHAYNA Sloan [address], [address] [facility], [place], [address] , [employer] [facility] 3 15:59:02 Bleeding internal hemorrhoids 10602087 Active 2022 SHAYNA Sloan [address], [place], [address] , [employer] [facility] 3 16:00:10 Iron deficiency 54786218 Active 2022 SHAYNA Sloan [address], [address] [facility], [place], [address] , [employer] [facility] [employer] 3 18:21:33 Acute sinusitis 05443881 Active 2022 SHAYNA Sloan [address], [place], [address] , [employer] [facility] 3 11:42:05 Notes:Medical History: Pansi nusitis Problem Notes None recorded. Procedures Surgical History None recorded. Imaging Results Imaging Date Name Status LastModified by Organization Details LastModified Time 09/14/2021 complete PFT* completed MIGRATION.[id number] 23 0026 Information not available 11/24/2022 23:32:07 11/23/2021 methacholine challenge* completed [id number] [facility] (One Call Scheduling) [address] [place], [address], 11/24/2022 23:32:07 12/09/2021 CT, chest, w/o contrast completed [id number].[id number] [facility] [address] [place], [address], 11/24/2022 23:32:07 12/09/2021 CT, chest, w/o contrast completed MIGRATION.[id number] [facility] [address] [place], [address], 11/24/2022 23:32:07 01/01/2022 MAMMO, diagnostic, digital, bilateral completed [id number] [facility] Add On Lab Orders [address] [place], [address], 11/24/2022 23:32:07 Procedure Notes None recorded. Medical Equipment None Reported. Allergies No known drug allergies Medications Name Sig Start Date Stop Date Status Note LastModified by Organization Details LastModified Time doxycycline hyclate 100 mg capsule TAKE 1 CAPSULE BY MOUTH TWICE DAILY WITH MEALS 10/07 completed Not Available Not Available Not Available azithromyci n 250 mg tablet TAKE 2 TABLETS (500 MG) BY ORAL ROUTE ONCE DAILY FOR 1 DAY THEN 1 TABLET (250 MG) BY ORAL ROUTE ONCE DAILY FOR 4 DAYS active Not Available Not Available No t Available fluconazole 150 mg tablet take one tab po on day 1 and day 3. may repeat if needed 06/11 completed Not Available Not Available Not Available hydrocodone 5 mg-acetamin ophen 325 mg tablet TAKE 1 TABLET BY MOUTH EVERY 4 HOURS NEEDED FOR PAIN 08/02 completed Not Available Not Available Not Available prednisone 20 mg tablet Take 2 tablets every day by oral route in the morning for 5 days. active Not Available Not Available No t Available ciprofloxac in 500 mg tablet Take 1 tablet every 12 hours by oral route. 06/11 completed Not Available Not Available Not Available sulfamethox azole 800 mg-trimetho prim 160 mg tablet Take 1 tablet every 12 hours by oral route. 10/07 completed Not Available Not Available Not Available hydrocortis one 2.5 % topical cream with perineal applicator APPLY RECTALLY EVERY NIGHT AT BEDTIME FOR 7-10 DAYS active Not Available Not Available No t Available amoxicillin 875 mg tablet TAKE 1 TABLET BY MOUTH EVERY 12 HOURS active Not Available Not Available No t Available betamethaso ne dipropionat e 0.05 % topical cream APPLY SPARINGLY TO AFFECTED AREA EVERY DAY active Not Available Not Available No t Available amoxicillin 250 mg capsule TAKE 1 CAPSULE BY MOUTH EVERY 8 HOURS UNTIL GONE 02/19 completed Not Available Not Available Not Available methylpredn isolone 4 mg tablets in a dose pack TAKE 6 TABLETS ON DAY 1 DIRECTED ON PACKAGE AND DECREASE BY 1 TAB EACH DAY FOR A TOTAL OF 6 DAYS 02/19 completed Not Available Not Available Not Available albuterol sulfate HFA 90 mcg/actuati on aerosol inhaler INHALE 2 PUFFS BY MOUTH EVERY 4 TO 6 HOURS NEEDED active Not Available Not Available No t Available ondansetron 4 mg disintegrat ing tablet LET 1 TABLET DISSOLVE BY MOUTH EVERY 6 HOURS NEEDED FOR NAUSEA/VO MITING 06/11 completed Not Available Not Available Not Available cefdinir 300 mg capsule Take 1 capsule every 12 hours by oral route. active Not Available Not Available No t Available fluticasone propionate 50 mcg/actuati on nasal spray,suspe nsion SPRAY 2 SPRAYS INTO EACH NOSTRIL EVERY DAY active Not Available Not Available No t Available amoxicillin 875 mg-potassiu m clavulanate 125 mg tablet TAKE 1 TABLET BY MOUTH EVERY 12 HOURS FOR 10 DAYS 10/07 completed Not Available Not Available Not Available nitrofurant oin monohydrate /macrocryst als 100 mg capsule TAKE 1 CAPSULE BY MOUTH TWICE A DAY FOR 10 DAYS 05/12 completed Not Available Not Available Not Available Flovent HFA 110 mcg/actuati on aerosol inhaler Inhale 2 puffs twice a day by inhalatio n route for 30 days. 2022 active Not Available Not Available Not Avai lable 2021 active Not Available Not Available Not Avai lable ferrous gluconate 324 mg (38 mg iron) tablet TAKE 1 TABLET BY MOUTH EVERY DAY active Not Available Not Available No t Available Telma Silva [facility] spacer USE DIRECTED active Not Available Not Available No t Available Vitals Date Recorded Body mass index (BMI) Body height Oxygen saturation Oxygen saturation in Arterial blood by Pulse oximetry Heart rate Body temperature Body weight Systolic blood pressure Diastolic blood pressure Provider Name and Address Organization Details Last Updated DateTime 2 24.7 kg/m2 157.48 cm 97 % 97 % 76 /min 98.2 [degF] 40969.9 7 g 108 mm[Hg] 68 mm[Hg] Not Available [facility] 3 23:30:09 Date Recorded Body mass index (BMI) Body height Oxygen saturation Oxygen saturation in Arterial blood by Pulse oximetry Heart rate Body temperature Body weight Systolic blood pressure Diastolic blood pressure Provider Name and Address Organization Details Last Updated DateTime 2 25.2 kg/m2 157.48 cm 98 % 98 % 80 /min 98.2 [degF] 21139.7 5 g 110 mm[Hg] 60 mm[Hg] Not Available [facility] 3 23:30:09 Date Recorded Body mass index (BMI) Body height Oxygen saturation Oxygen saturation in Arterial blood by Pulse oximetry Heart rate Body temperature Body weight Systolic blood pressure Diastolic blood pressure Provider Name and Address Organization Details Last Updated DateTime 2 24.5 kg/m2 157.48 cm 97 % 97 % 83 /min 98 [degF] 19160.3 8 g 108 mm[Hg] 64 mm[Hg] Not Available [facility] 3 23:30:09 Date Recorded Body mass index (BMI) Body height Oxygen saturation Oxygen saturation in Arterial blood by Pulse oximetry Heart rate Body temperature Body weight Systolic blood pressure Diastolic blood pressure Provider Name and Address Organization Details Last Updated DateTime 2 26 kg/m2 157.48 cm 98 % 98 % 84 /min 97.8 [degF] 15784.1 2 g 106 mm[Hg] 70 mm[Hg] Not Available [facility] 3 23:30:09 Date Recorded Body temperature Body weight Body mass index (BMI) Body height Heart rate Oxygen saturation Oxygen saturation in Arterial blood by Pulse oximetry Systolic blood pressure Diastolic blood pressure Provider Name and Address Organization Details Last Updated DateTime 3 98.2 [degF] 66470.1 5 g 25.1 kg/m2 157.48 cm 100 /min 98 % 98 % 118 mm[Hg] 68 mm[Hg] Shawanda Parker RN [place] [facility] 3 15:29:25 Social History Question Answer Notes LastModified by Organizat ion Details LastModified Time Tobacco Smoking Status Never Smoker Not Available [facility] 11/24/2022 23:28:44 Do You Have An Advance Directive? No [id number] Information not available 11/24/2022 What Is Your Level Of Alcohol Consumption? Occasional MIGRATION.853265 8282 Information not available 11/24/2022 If You Are , What Was Your Level Of Alcohol Consumption Prior To ? None MIGRATION.365556 2545 Information not available 11/24/2022 Do You Wear A Helmet When Biking? No MIGRATION.470772 4863 Information not available 11/24/2022 What Is Your Level Of Caffeine Consumption? Occasional MIGRATION.728813 8675 Information not available 11/24/2022 In The 14 Days Before Symptom Onset, Have You Had Close Contact With A Laboratory-confir med COVID-19 While That Case Was Ill? No MIGRATION.699678 0793 Information not available 11/24/2022 In The 14 Days Before Symptom Onset, Have You Had Close Contact With A Person Who Is Under Investigation For COVID-19 While That Person Was Ill? No MIGRATION.884727 0881 Information not available 11/24/2022 Are You Currently Employed? Yes [email or web address] Information not available 08/01/2023 What Type Of Diet Are You Following? REGULAR MIGRATION.879811 3503 Information not available 11/24/2022 What Is The Highest Grade Or Level Of School You Have Completed Or The Highest Degree You Have Received? 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 No MIGRATION.601781 7025 Information not available 11/24/2022 What Is The Fluoride Status Of Your Home? Fluoridated MIGRATION.687137 6710 Information not available 11/24/2022 Are There Any Guns Present In Your Home? No MIGRATION.933206 5958 Information not available 11/24/2022 Do You Use Insect Repellent Routinely? Yes MIGRATION.073040 2302 Information not available 11/24/2022 [facility] MIGRATION.747706 0092 Information not available 11/24/2022 Do You Have A Medical Power Of Diesel Locomotive Firer/Fireman? No MIGRATION.793030 5623 Information not available 11/24/2022 Have You Ever Been Counseled For Unhealthy Alcohol Use? No MIGRATION.661756 7785 Information not available 11/24/2022 Do You Have Any Pets? No MIGRATION.479310 1028 Information not available 11/24/2022 What Is Your Relationship Status? MIGRATION.523455 2786 Information not available 11/24/2022 Do You Use Your Seat Belt Or Car Seat Routinely? Yes MIGRATION.559280 1152 Information not available 11/24/2022 Do You Have Smoke And Carbon Monoxide Detectors In Your Home? Yes MIGRATION.458537 0019 Information not available 11/24/2022 Are You Passively Exposed To Smoke? No MIGRATION.651300 3487 Information not available 11/24/2022 Are There Any Smokers In Your House? No MIGRATION.691552 5684 Information not available 11/24/2022 Do You Feel Stressed (tense, Restless, Nervous, Or Anxious, Or Unable To Sleep At Night)? [id number] MIGRATION.742848 0057 Information not available 11/24/2022 Do You Use Any Illicit Or Recreational Drugs? No MIGRATION.649448 6700 Information not available 11/24/2022 Do You Use Sunscreen Routinely? Yes MIGRATION.277292 3806 Information not available 11/24/2022 Has Tobacco Cessation Counseling Been Provided? No MIGRATION.011587 5238 Information not available 11/24/2022 Have You Recently Traveled Abroad? No MIGRATION.469331 5217 Information not available 11/24/2022 Do You Have Any Dietary Restrictions? No MIGRATION.465686 6131 Information not available 11/24/2022 Do You Or Have You Ever Used Any Other Forms Of Tobacco Or Nicotine? No MIGRATION.936387 0733 Information not available 11/24/2022 Sex: Unknown Functional Status Question Answer Note LastModified by Organizat ion Details LastModified Time What is your exercise level? Occasional [id number].[id number] 26 Information not available 11/24/2022 Mental Status None recorded. Family History Relationship Description Onset Age of this Age Resolved Age Notes LastModified by Organization Details LastModified Time Mother Arthritis MIGRATION.916 [id number] Not available 11/24/2022 23:29:02 Father Hypertensive disorder MIGRATION.751 [id number] Not available 11/24/2022 23:29:03 Father Depressive disorder MIGRATION.300 [id number] Not available 11/24/2022 23:29:03 Father Acid reflux MIGRATION.03 0 [id number] Not available 11/24/2022 23:29:03 Unspecified Relation Hypertensive disorder Patern al grandp arent & matern al grandp arent MIGRATION.536 [id number] Not available 11/24/2022 23:29:03 Unspecified Relation Arthritis Matern al grandp arent MIGRATION.616 [id number] Not available 11/24/2022 23:29:03 Unspecified Relation Myocardial infarction Matern al grandp arent MIGRATION.373 [id number] Not available 11/24/2022 23:29:03 Unspecified Relation Hyperlipidem ia Matern al grandp arent MIGRATION.151 [id number] Not available 11/24/2022 23:29:03 Unspecified Relation Disorder of thyroid gland Matern al grandp arent MIGRATION.390 [id number] Not available 11/24/2022 23:29:03 Unspecified Relation Lupus erythematosu s Matern al grandp arent MIGRATION.037 [id number] Not available 11/24/2022 23:29:03 Unspecified Relation Cerebrovascu lar accident patern al grandp arent MIGRATION.789 [id number] Not available 11/24/2022 23:29:03 Unspecified Relation Diabetes mellitus Patern al grandp arent MIGRATION.437 [id number] Not available 11/24/2022 23:29:03 Paternal Grandfather Myocardial infarction MIGRATION.034 [id number] Not available 11/24/2022 23:29:03 Paternal Grandmother Myocardial infarction MIGRATION.143 [id number] Not available 11/24/2022 23:29:03 Medical History Condition Response SLEEP APNEA N MRSA N ALLERGIES/HAYFEVER N LUNG DISEASE/DISORDER N INSOMNIA N HISTORY OF DRUG ABUSE N COPD N RADIATION / CHEMOTHERAPY N HIGH CHOLESTEROL / HYPERLIPIDEMIA N HYPERTHYROIDISM N BLOOD DISEASES N EAR OR HEARING PROBLEMS N HYPOTHYROIDISM N SHINGLES N DEPRESSION (INCLUDING POST ) N HAVE YOU BEEN HOSPITALIZED OR SEEN IN [facility] IN THE PAST YEAR ? N STROKE/TIA N ULCERS N OBESITY N HISTORY WITH COMPLICATIONS WITH ANESTHES IA ? N ANEURYSM N USE OF BLOOD THINNERS N NO SIGNIFICANT PAST MEDICAL HISTORY N DIABETES, TYPE N PARATHYROID DISEASE N ENT N SEASONAL ALLERGIES Y HEARTBURN / REFLUX N HEPATITIS / LIVER DISEASE N SLEEP DISORDER N SEIZURES/EPILEPSY N HEADACHES/MIGRAINES N CHF N PACEMAKER N DIZZINESS N AIDS/HIV N HEART DISEASE/HEART PROBLEMS N FRACTURES N HYPERTENSION N CANCER: SPECIFY N TOURETTE'S N BLOOD TRANSFUSION N ANEMIA/BLOOD DISORDER N ANESTHESIA COMPLICATIONS N CHRONIC EAR INFECTIONS N TUBERCULOSIS N Gynecological History Statement/Question Response Menses Monthly Y Abnormal Pap N Date of Last Pap Current Control Method None Date of LMP 05/07/2021 Sexually Active? Y Obstetrics History GPAL:G 0 P 0 0 0 0 Type Value Living 0 Total 0 Immunizations Vaccine Type Date Status Note Provider Nam e and Address Organization Details Recorded Time Tdap 10/18/2022 completed Not Available [facility] 11/24/2022 23:31:53 Past Encounters Encounter ID Performer Location Encounter Start Date Encounter Closed Date Diagnosis/Indication Diagnosis SNOMED-CT Code Diagnosis ICD10 Code Diagnosis Note [id number] [facility] [place] [address] [place] [address] 05/12/2021 00:00:00 05/26/2021 18:39:09 [id number] [facility] DEFAULT_1 _1 , 06/22/2021 00:00:00 06/22/2021 15:39:34 [id number] [facility] E[facility] [place] [address] [place] [address] 07/09/2021 00:00:00 07/09/2021 16:45:38 [id number] [facility] Pulmon[facility] [place] [address] [place] [address] 10/07/2021 00:00:00 10/07/2021 16:45:46 [id number] [facility] [place] [address] [place] [address] 11/26/2021 00:00:00 11/26/2021 16:49:29 [id number] [facility] [place] [address] [place] [address] 03/01/2022 00:00:00 03/01/2022 16:36:16 [id number] [facility] [place] [address] [place] [address] 06/14/2022 00:00:00 06/23/2022 21:13:47 [id number] SHAYNA Sloan [facility] [place] [address] [place] [address] 08/02/2023 15:15:48 08/02/2023 16:09:49 Adult health examination 121773632 Z00.01 well exam completed . labs ordered. Asthma 653440464 J45.90 9 refill albuterol hfa and flovent hfa 110mcg Cholesterol screening 27 4649364 Z13.220 fasting lipids due Diabetes m ellitus screening 672363483 Z13.1 a1c screening ordered Long-term drug therapy 865005942 Z79.899 routine labs ordered with thyroid panel. Iron defic iency anemia 79239452 D50.9 check iron studies. Bleeding i nternal hemorrhoids 88500515 K64.8 rx for hydrocorti sone cream applicator use. Health Concerns Section Related Observation LastModified by Organization Detai ls LastModified Time None Recorded Concern Status LastModified by Organization Details LastModified Time None Recorded Advance Directives Directive N: Payers Encounter Date Sequence Insurance Name Policy Number Policy Saldivar Covered Member ID Saldivar Member ID Guarantor Name 08/02/2023 1 [place] [id number] Calista Yan [id number] Calista Parks Notes Date Note Type Note Provider Name and Address Organization Details Recorded Time 06/14/2022 text/html Generic HPI TemplateReported bypatient.Notes:small , itchy, bumps on the fingers and the feet. new onset. 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 Not Available [employer] 06/23/2022 21:13:47 08/02/2023 text/html wellnessno chron ic problems SHAYNA Sloan [address] [facility] [address], [place], [address], [employer] 08/25/2023 20:46:16 OBGyn Episode No OBEpisode recorded.
--- OUTSIDE RECORDS SUMMARY | 2024-12-03 08:40 | XMS_ITS | Data Portability ---
Author Organization [facility] , [facility] Address [address] [place] [address] Assessment No assessment recorded. Plan of Treatment Reminders Order Date Submit Date Provider Last Modified By Organization Details Last Modified Time Details Appointments None recorded. Lab test, urine 2021 022 [email or web address] [facility], [address] [place], [address], 2 12:16:49 culture, urine 2021 022 [email or web address] [facility], [address] [place], [address], 2 18:58:48 CT + NG DNA, PCR, unspecifie d specimen 2021 022 [email or web address] [facility], [address] [place] [address], [address], 2 17:34:39 bacterial vaginosis + vaginitis panel, vaginal 2021 022 [email or web address] [id number] [facility], [address] [place] [address], [address], 3 03:39:02 TSH + free T4, serum 2021 022 [email or web address] [facility], [address] [place], [address], 2 15:17:41 T3, free, serum or plasma [facility], [address] [place], [address], 15:17:41 HbA1c (hemoglobi n A1c), blood [facility], [address] [place], [address], 15:17:41 prolactin, serum 2021 [facility] Keenjar [facility], [address] [place], [address], 15:17:42 unlisted lab - anti-mulle deyanira hormone (amh), female 2021 [facility] Keenjar [facility], [address] [place], [address], 15:17:42 lh + FSH, serum 2021 [facility], [address] [place], [address], 15:17:42 estradiol, serum 2021 [facility], [address] [place], [address], 15:17:42 Referral None recorded. Procedures None recorded. Surgeries None recorded. Imaging US, obstetric, transvagin al 2021 022 melanie Not available 19:03:35 US, breast, unilateral - left breast, 1cm irregular mobile mass at 1:00 2021 [facility], [address] [place] [address], [address], 14:08:46 Medication Orders None recorded. Patient TargetsNo targets recorded. Patient InstructionsNo instructions recorded. Reason for Referral None Reported. Results Created Date Observation Date Name Description Value Unit Range Abnormal Flag Note LastModifiedBy Organization Detail LastModifiedTime 12/11/19 22 12/11/2021 VAGIN ITIS PLUS STD PANEL bacterial vaginosis BV neg negati ve Not Available [address], [address], 12/12/2021 10:42:11 12/11/19 22 12/11/2021 VAGIN ITIS PLUS STD PANEL sourav species C. spp POS negati ve positive Not Available [address], [address], 12/12/2021 10:42:11 12/11/19 22 12/11/2021 VAGIN ITIS PLUS STD PANEL sourav glabrata C. gla neg negati ve Not Available [address], [address], 12/12/2021 10:42:11 12/11/19 22 12/11/2021 VAGIN ITIS PLUS STD PANEL trichomonas vaginalis CV/TV TRICH neg negati ve Not Available [address], [address], 12/12/2021 10:42:11 12/11/19 22 12/11/2021 VAGIN ITIS PLUS STD PANEL chlamydia trachomatis CT neg negati ve If both Pap and Endoc ervic al swabs are colle cted, the Prese rvCyt Solut ion liqui d Pap speci men must be colle cted befor e the endoc ervic al swab speci men. Not Available [address], [address], 12/12/2021 10:42:11 12/11/19 22 12/11/2021 VAGIN ITIS PLUS STD PANEL neisseria gonorrhoeae GC neg negati ve If both Pap and Endoc ervic al swabs are colle cted, the Prese rvCyt Solut ion liqui d Pap speci men must be colle cted befor e the endoc ervic al swab speci men. Not Available [place] Lionel [address] [facility], [place], [address], 12/12/2021 10:42:11 04/06/20 22 04/06/2022 pregn behzad test, urine HCG positi ve Not Available [facility] [address] [facility], [place], [address], 04/06/2022 17:46:12 04/08/20 22 04/06/2022 US, obste tric, trans vagin al No observ ation record ed. [email or web address] Kaitlyn [address], [place], [address], 05/22/2022 01:58:27 Result Notes None recorded. Problems Name Problem SNOMED Code Status Onset Date Resolution Date Notes Provider Name and Address Organization Details Recorded Time Sampling of vagina for Papanico laou smear Completed 202012/10/2021 Encounter for gynecolog ical examinati on (general) (routine) without abnormal findings; Progress: Stable Added By: Gloria Wei Add to Current Problems: YES ProblemSt atus: Current Sarita june, [facility] 2 14:35:52 Screenin g for malignan t neoplasm of cervix Completed 202012/10/2021 Encounter for screening for malignant neoplasm of cervix; Progress: Stable Added By: Gloria Wei Add to Current Problems: YES ProblemSt atus: Current Sarita june, [facility] 2 14:35:53 Asthma 154292764 Active 2021 IVAN PETERSEN, CNM [address] [facility], [place], [address], [facility] 2 12:14:10 Problem Notes None recorded. Procedures Surgical History Date Name Laterality Status Provider Name and Address Organization Details Recorded Time Date of Last Pap Smear completed Monae Fernando [facility] 12/09/2021 01:27:58 Imaging Results Imaging Date Name Status LastModified by Organization Details LastModified Time 04/06/2022 US, obstetric, transvaginal completed [email or web address] Kaitlyn [address], [place], [address], 05/22/2022 01:58:27 Procedure Notes None recorded. Medical Equipment None Reported. Allergies No known drug allergies Medications Name Sig Start Date Stop Date Status Note LastModified by Organization Details LastModified Time doxycycline hyclate 100 mg capsule TAKE 1 CAPSULE BY MOUTH TWICE DAILY WITH MEALS 12/10 completed Not Available Not Available Not Available azithromyci n 250 mg tablet TAKE 2 TABLETS BY MOUTH TODAY, THEN TAKE 1 TABLET DAILY FOR 4 DAYS 04/06 completed Not Available Not Available Not Available fluconazole 150 mg tablet TAKE 1 TABLET BY MOUTH ON DAY 1 AND ON DAY 3. MAY REPEAT IF NEEDED 04/08 completed Not Available Not Available Not Available hydrocodone 5 mg-acetamin ophen 325 mg tablet TAKE 1-2 TABLETS BY MOUTH EVERY 6 HOURS NEEDED FOR PAIN 04/06 completed Not Available Not Available Not Available prednisone 20 mg tablet TAKE 2 TABLETS BY MOUTH EVERY DAY IN THE MORNING FOR 5 DAYS 12/10 completed Not Available Not Available Not Available ciprofloxac in 500 mg tablet TAKE 1 TABLET BY MOUTH EVERY 12 HOURS 04/06 completed Not Available Not Available Not Available sulfamethox azole 800 mg-trimetho prim 160 mg tablet TAKE 1 TABLET BY MOUTH EVERY 12 HOURS 12/10 completed Not Available Not Available Not Available amoxicillin 250 mg capsule TAKE 1 CAPSULE BY MOUTH EVERY 8 HOURS UNTIL GONE 04/06 completed Not Available Not Available Not Available methylpredn isolone 4 mg tablets in a dose pack TAKE 6 TABLETS ON DAY 1 DIRECTED ON PACKAGE AND DECREASE BY 1 TAB EACH DAY FOR A TOTAL OF 6 DAYS 04/06 completed Not Available Not Available Not Available albuterol sulfate HFA 90 mcg/actuati on aerosol inhaler INHALE 2 PUFFS INTO THE LUNGS EVERY 4 TO 6 HOURS NEEDED FOR 30 DAYS active Not Available Not Available No t Available ondansetron 4 mg disintegrat ing tablet LET 1 TABLET DISSOLVE BY MOUTH EVERY 6 HOURS NEEDED FOR NAUSEA/VO MITING 04/06 completed Not Available Not Available Not Available cefdinir 300 mg capsule TAKE 1 CAPSULE BY MOUTH EVERY 12 HOURS 12/10 completed Not Available Not Available Not Available fluticasone propionate 50 mcg/actuati on nasal spray,suspe nsion SPRAY 2 SPRAYS INTO EACH NOSTRIL EVERY DAY 12/10 completed Not Available Not Available Not Available amoxicillin 875 mg-marylin parnell clavulanate 125 mg tablet TAKE 1 TABLET BY MOUTH TWICE A DAY FOR 10 DAYS 12/10 completed Not Available Not Available Not Available Flovent HFA 110 mcg/actuati on aerosol inhaler INHALE 1 PUFF TWICE A DAY BY INHALATIO N ROUTE DIRECTED FOR 30 DAYS. active Not Available Not Available No t Available Vitals Date Recorded Body height Body mass index (BMI) Body weight Body temperature Systolic blood pressure Diastolic blood pressure Provider Name and Address Organization Details Last Updated DateTime 2 157.48 cm 24.5 kg/m2 21624.3 8 g 96.7 [degF] 110 mm[Hg] 60 mm[Hg] Vee Novak [facility] 14:41:43 Social History Question Answer Notes LastModified by Organizat ion Details LastModified Time Tobacco Smoking Status Never Smoker Vee june, [facility] 12/10/2021 14:43:33 What Is Your Level Of Alcohol Consumption? None Information not available 12/10/2021 Are You Blind Or Do You Have Difficulty Seeing? No Information not available 12/10/2021 Are You Currently Employed? Yes [email or web address] Information not available 12/20/2021 Are You Deaf Or Do You Have Serious Difficulty Hearing? No Information not available 12/10/2021 What Type Of Diet Are You Following? 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 Information not available 12/09/2021 Are You Sexually Active? Yes Information not available 12/09/2021 Do You Use Any Illicit Or Recreational Drugs? No Information not available 12/10/2021 Do You Or Have You Ever Used Any Other Forms Of Tobacco Or Nicotine? No [email or web address] Information not available 12/10/2021 Sex: Unknown Functional Status Question Answer Note LastModified by Organization D etails LastModified Time What is your exercise level? None Information not available 12/10/2021 Mental Status None recorded. Family History Relationship Description Onset Age of this Age Resolved Age Notes LastModified by Organization Details LastModified Time Father No current problems or disability [email or web address] Not available 01:29:32 Mother No current problems or disability [email or web address] Not available 01:29:32 Maternal Grandmother Female infertility [email or web address] Not available 13:38:50 Unspecified Relation Female infertility cousin [email or web address] Not available 13:38:50 Medical History Condition Response Asthma Y Seasonal allergies Y Gynecological History Statement/Question Response Date of Last Pap Smear 06/04/2021 Current Control Method None Age at Menarche 13 Date of LMP 02/08/2022 Obstetrics History GPAL:G 0 P 0 0 0 0 Past Encounters Encounter ID Performer Location Encounter Start Date Encounter Closed Date Diagnosis/Indication Diagnosis SNOMED-CT Code Diagnosis ICD10 Code Diagnosis Note [id number] Natalia Barrett MD [facility] [address] [place] [address] 12/10/2021 14:30:07 12/10/2021 16:40:49 Vaginal irritation 859919833 N89.8 C/o vaginal pruritus/b urning since completing a course of steroids for a sinus infection. Pelvic exam wnl today, SureSwab obtained and sent, treat PRN based on results. Pain of breast 74979273 N64.4 C/o left breast pain x3 months. ~1cm irregular, mobile, tender left breast mass at 1:00, breast u/s ordered for further evaluation . Female infertility 00772 08 N97.9 Calista has been trying to conceive x13 months without success. She reports regular periods q month, has been getting positive ovulation results each month with ovuation prediction kits. Interested in infertilit y evaulation . Bloodwork ordered today: HbA1C, TFTs, FSH/LH, PRL, AMH. 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 Semen analysis ordered for her (Derrick Parks, 07/19/1991 ). Also recommende d HSG and pelvic u/s. Instructed to call with LMP to schedule HSG, message sent to surgical scheduling . Patient to follow up in 1-2 weeks for pelvic u/s, u/s PA requested. [id number] [facility] PETERSEN, [facility] [address] [place] [address] 04/06/2022 16:08:58 04/07/2022 10:14:36 [id number] Z33.1 IUP @ 8.1 weeks with +FHT 174. Discussed US findings. NOB packet given, reviewed PNV/diet/O TCs/exerci se/travel/ sex, oriented to office procedures . Labs today. RTO 4 wks. Discussion of asthma in as well as current medication s including benefits of managed asthma outweighin g theoretica l risk of medication s. SAB precaution s reviewed. Missed period 53879707 N 92.5 Health Concerns Section Related Observation LastModified by Organization Detai ls LastModified Time None Recorded Concern Status LastModified by Organization Details LastModified Time None Recorded Advance Directives Directive None Recorded Payers Encounter Date Sequence Insurance Name Policy Number Policy Saldivar Covered Member ID Saldivar Member ID Guarantor Name 12/10/2021 1 [place] Calista Hongiz [id number] Calista Hongiz 04/06/2022 1 [place] Calista Hongiz [id number] Calista Heerdia Notes Date Note Type Note Provider Name and Address Organization Details Recorded Time 12/10/2021 text/html Breast PainReported bypatient.Location :left Onset/Timing:>1 month Quality:willem Grigsby is here with multiple complaints today. First, she reports left breast pain x3 months, denies any breast lumps or rash. Secondly, she c/o vaginal pruritus/burning after completing a course of steroids for a recent sinus infection. Lastly, she has been trying to conceive for 13 months without success, reports regular periods and +ovulation with ovulation prediction kits each time. She is interested in further evaluation for infertility. Natalia Barrett MD [address] [facility], [place], [address], [facility] IV 12/20/2021 13:46:54 OBGyn Episode No OBEpisode recorded.
== END 2024-12-03 08:20 | disposition home or self-care (01) ==
LOC: ANHIMG 08:21
PROVIDERS: PCP Physician Assistant; Visit Provider Physician Assistant
DX: R10.10 Upper abdominal pain, unspecified (principal)
CPT/HCPCS: 78227; A9537; J2805

== ENCOUNTER 2025-02-22 13:07 | Outpatient (CLI) | payer OTHER, SELFPAY ==
--- OUTSIDE RECORDS SUMMARY | 2025-02-22 13:11 | XMS_ITS | Data Portability ---
Author Organization [facility] Address [address] [place] [address] Care Team Providers Care Beam Worker Name Role Phone SAMANTHA KIMBLE Primary Care Provider Unavaila ble Assessment No assessment recorded. Plan of Treatment Reminders Order Date Submit Date Provider Last Modified By Organization Details Last Modified Time Details Appointments None recorded. Lab H pylori urea breath test, co2 infrared 2023 [facility] (Lab), [address] [place] [address] [address], [place], [address], 4 17:06:36 mold allergen panel, serum 2023 024 [facility] (Lab), [address] [place], [address], 4 12:18:38 lipid panel, serum 2023 024 [facility] (Lab), [address] [place], [address], 4 13:01:23 CMP, serum or plasma 2023 024 [facility] (Lab), [address] [place], [address], 4 13:01:23 DIONE (antinucle ar antibodies ) titer + pattern, ifa, serum 2023 024 [facility] (Lab), [address] [place], [address], 4 12:17:56 CBC w/ auto diff 2023 [facility] (Lab), [address] [place], [address], 4 13:01:23 iron + TIBC + ferritin, serum 2023 024 [facility] (Lab), [address] [place], [address], 4 13:01:23 PPD (purified protein derivative ), skin test 2016 017 [place] In-Office Order, Internal Use Only DO Not Attach Compendium DO Not Attach Compendium, Do Not Delete/merge, [id number] 7 12:05:08 Referral oral surgery/de ntist referral - Please call patient to schedule appt. Thank you 2016 017 [email or web address] [facility], [address] [place], [address], 8 11:19:51 Procedures None recorded. Surgeries None recorded. Imaging RF, upper gastrointe stinal tract + small bowel, w/ contrast PO 2023 024 [facility] (Imaging), [address] [facility] [address] [place] [address], [address], 4 15:48:07 US, abdomen, complete 2023 024 [facility] (Imaging), [address], [place], [address], 4 14:02:41 Medication Orders omeprazole 40 mg capsule,de layed release 2023 024 [facility] #[id number], [address], [place], [address], 4 17:11:47 famotidine 40 mg tablet 2023 024 [facility] #[id number], [address], [place], [place], [id number], 4 17:11:45 cetirizine 10 mg tablet 2017 018 randallrtheathera [facility] #[id number], [address], [place], [place], [id number], 4 16:39:42 fluticason e propionate 50 mcg/actuat ion nasal spray,susp ension 2017 018 [id number], [address], [place], [place], [id number], 4 16:39:22 omeprazole 40 mg capsule,de layed release 2017 018 [email or web address] Not available 4 16:51:26 naproxen 500 mg tablet 2016 017 hebert [facility] #42247, [address], [place], [place], [id number], 8 15:21:14 Tubersol 5 tub. unit/0.1 mL intraderma l injection solution 2016 017 [email or web address] Not available 8 15:05:24 Patient TargetsNo targets recorded. Patient Instructions Encounter Date Encounter Id Patient Instructions Last Modified By Organization Details Last Modified Time 04/12/2018 [id number] gastroesophageal reflux disease (GERD): care instructions maria antonia Not available 04/12/2018 15:21:06 Reason for Referral Oral Surgery/dentist Referra l for Temporomandibular joint disorder Please call patient to schedule appt. Thank you Referring Physician: Samantha Kimble, Family Medicine, Encounter Date: 09/21/2017 Results Created Date Observation Date Name Description Value Unit Range Abnormal Flag Note LastModifiedBy Organization Detail LastModifiedTime 01/26/20 17 01/27/2017 PPD (ludin fied prote in deriv ative ), skin test Result Negati ve Not Available In-Office Order Internal Use Only DO Not Attach Compendium DO Not Attach Compendium, Do Not Delete/merge, [id number] 01/25/2017 11:38:14 01/12/20 17 01/13/2017 PPD (ludin fied prote in deriv ative ), skin test Result Negati ve Not Available In-Office Order Internal Use Only DO Not Attach Compendium DO Not Attach Compendium, Do Not Delete/merge, [id number] 01/11/2017 11:32:18 01/12/20 17 01/12/2017 varic valarie- zoste r igg Ab scree n, serum varicella zoster IgG 912 index immune >165 NEGAT CRISTI <135 EQUIV OCAL 135 - 165 POSIT CRISTI >165 A POSIT CRISTI RESUL T GENER ALLY INDIC ATES EXPOS URE TO THE PATHO GEN OR ADMIN ISTRA TION OF SPECI FIC IMMUN OGLOB ULINS , BUT IT IS NOT INDIC ATION OF ACTIV E INFEC TION OR STAGE OF DISEA SE. Not Available [facility] [address] [facility], [place], [address], 01/12/2017 13:10:55 12/11/19 22 12/11/2021 Bacte rial vagin osis and vagin itis DNA panel - Vagin al fluid by Probe with signa l ampli ficat ion bacterial vaginosis BV neg bacte rial vagin osis Not Available Not Available 11/21/2024 14:40:20 12/11/19 22 12/11/2021 Bacte rial vagin osis and vagin itis DNA panel - Vagin al fluid by Probe with signa l ampli ficat ion sourav species C. spp POS keiko da speci es Not Available Not Available 11/21/2024 14:40:20 12/11/19 22 12/11/2021 Bacte rial vagin osis and vagin itis DNA panel - Vagin al fluid by Probe with signa l ampli ficat ion sourav glabrata C. gla neg keiko da glabr luis Not Available Not Available 11/21/2024 14:40:20 12/11/19 22 12/11/2021 Bacte rial vagin osis and vagin itis DNA panel - Vagin al fluid by Probe with signa l ampli ficat ion trichomonas vaginalis CV/TV TRICH neg trich omona s vagin kayleigh CV/TV Not Available Not Available 11/21/2024 14:40:20 12/11/19 22 12/11/2021 Bacte rial vagin osis and vagin itis DNA panel - Vagin al fluid by Probe with signa l ampli ficat ion chlamydia trachomatis CT neg chlam ydia trach omati s Not Available Not Available 11/21/2024 14:40:20 12/11/19 22 12/11/2021 Bacte rial vagin osis and vagin itis DNA panel - Vagin al fluid by Probe with signa l ampli ficat ion neisseria gonorrhoeae GC neg neiss eria gonor rhoea e Not Available Not Available 11/21/2024 14:40:20 02/01/20 24 02/01/2024 pap, IG + HR HPV Pap nagati ve Not Available Not Available 16:05:14 04/11/20 24 04/10/2024 US, pelvi s No observ ation record ed. [email or web address] [place] [address], [place], [address], 04/15/2024 00:36:08 06/07/20 24 06/07/2024 US, abdom en, compl ete No observ ation [place] ed. [email or web address] [address], [place], [address], 06/29/2024 12:29:04 09/03/20 24 09/03/2024 RF, upper gastr ointe ilya l tract + small bowel , w/ contr ast PO No observ ation record ed. [facility] ([facility]) [address] [place] [address] [place] [address], [address], 09/05/2024 10:20:56 01/17/20 12/03/2024 NM, hepat obili gilda scan, w/ CCK No observ ation record ed. [facility] [address], [place], [address], 01/18/2025 13:46:49 Result Notes None recorded. Problems Name Problem SNOMED Code Status Onset Date Resolution Date Notes Provider Name and Address Organization Details Recorded Time Gastroesophag eal reflux disease without esophagitis 877287172 Active 2017 Samantha Kimble PA-C Attn: Accounting ,[address] [facility], [place], [address] , [place] [facility] 8 15:20:15 Headache 49530763 Active Pepe Ramirez MD Attn: Accounting ,[address] [facility], [place], [address] , [place] [facility] 5 17:49:32 Eruption 828555215 Active Pepe Ramirez MD Attn: Accounting ,[address] [facility], [place], [address] , [place] [facility] 5 17:49:32 Atypical chest pain 392206180 Active Pepe Ramirez MD Attn: Accounting ,[address] [facility], [place], [address] , [place] [facility] 5 11:52:41 Heartburn 27758181 Active Pepe Ramirez MD Attn: Accounting ,[address] [facility], [place], [address] , [place] [facility] 5 17:49:32 Iron deficiency anemia 39967912 Active 2023 SHAYNA Sloan Attn: Accounting ,[address] [facility], [place], [address] , [place] [facility] 4 19:08:06 Acid reflux 232094663 Active 2023 SHAYNA Sloan Attn: Accounting ,[address] [facility], [place], [address] , [place] [facility] 4 19:08:09 Allergic rhinitis 22218385 Active 2023 SHAYNA Sloan Attn: Accounting ,[address] [facility], [place], [address] , [place] [facility] 4 19:08:10 Dizziness 712628087 Active Pepe Ramirez MD Attn: Accounting ,[address] [facility], [place], [address] , [place] [facility] 5 11:52:41 Palpitations 03487729 Active Pepe Ramirez MD Attn: Accounting ,[address] [facility], [place], [address] , [place] [facility] 5 16:39:26 Upper respiratory infection 46782109 Active 2016 Samantha Kimble PA-C Attn: Accounting ,[address] [facility], [place], [address] , [place] [facility] 7 09:42:58 Gynecologic examination Active 2016 Samantha Kimble PA-C Attn: Accounting ,[address] [facility], [place], [address] , [place] [facility] 7 15:49:11 Acne 52107907 Active 2016 Samantha Kimble PA-C Attn: Accounting ,[address] [place], [address] , [place] [facility] 7 15:56:56 Screening for disorder Active 2016 Samantha Kimble PA-C Attn: Accounting ,[address] [facility], [place], [address] , [place] [facility] 7 11:46:18 Tuberculosis screening Active 2016 Samantha Kimble PA-C Attn: Accounting ,[address] [place], [address] , [place] [facility] 7 11:46:22 History and physical examination, school Active 2016 Samantha Kimble PA-C Attn: Accounting ,[address] [place], [address] , [facility] 7 11:47:44 Problem Notes None recorded. Procedures Surgical History Date Name Laterality Status Provider Name and Address Organization Details Recorded Time delivery completed Colleen Malik [place] [facility] 01/23/2024 16:29:11 Imaging Results None recorded. Procedure Notes None recorded. Medical Equipment None Reported. Allergies No known drug allergies Medications Name Sig Start Date Stop Date Status Note LastModified by Organization Details LastModified Time amoxicilli n 500 mg capsule 09/21 completed Not Available Not Available Not Available cetirizine 10 mg tablet Take 1 tablet every day by oral route. 08/07 completed Not Available Not Available Not Available azithromyc in 250 mg tablet 01/11 completed Not Available Not Available Not Available ibuprofen 800 mg tablet 04/12 completed Not Available Not Available Not Available fluconazol e 150 mg tablet TAKE 1 TABLET BY MOUTH EVERY DAY FOR 3 DAYS active Not Available Not Available No t Available tretinoin 0.025 % topical cream APPLY TO THE AFFECTED AREA(S) BY TOPICAL ROUTE ONCE DAILY AT BEDTIME 01/11 completed Not Available Not Available Not Available famotidine 40 mg tablet TAKE 1 TABLET BY MOUTH EVERY DAY 08/07 completed pt hasn't been taking this Not Available Not Available Not Available Tubersol 5 tub. unit/0.1 mL intraderma l injection solution Administ er .1ml interder tom 04/12 completed Not Available Not Available Not Available benzoyl peroxide 5 % topical gel APPLY TO THE AFFECTED AREA(S) BY TOPICAL ROUTE ONCE DAILY 01/11 completed Not Available Not Available Not Available omeprazole 40 mg capsule,de layed release Take 1 capsule every day by oral route in the morning. active Not Available Not Available No t Available clindamyci n 1 % topical gel APPLY THIN LAYER EXTERNAL LY TO THE AFFECTED AREA TWICE DAILY 01/11 completed Not Available Not Available Not Available cephalexin 500 mg capsule 01/11 completed Not Available Not Available Not Available hydrocorti sone 0.5 % topical ointment APPLY TO THE AFFECTED AREA(S) BY TOPICAL ROUTE 2 TIMES PER DAY 01/11 completed Not Available Not Available Not Available fluticason e propionate 50 mcg/actuat ion nasal spray,susp ension [place] 1 spray twice a day by intranas al route. 2023 active Not Available Not Available Not Avai lable fluticason e propionate 110 mcg/actuat ion HFA aerosol inhaler 02/12 completed Not Available Not Available Not Available naproxen 500 mg tablet Take 1 tablet twice a day by oral route as needed. 04/12 completed Not Available Not Available Not Available amoxicilli n 875 mg-potassi um clavulanat e 125 mg tablet TAKE 1 TABLET BY MOUTH EVERY 12 HOURS active Not Available Not Available No t Available guaifenesi n 400 mg tablet Take 1 tablet every 4 hours by oral route as needed for 5 days. 01/11 completed Not Available Not Available Not Available Pulmicort Flexhaler 90 mcg/actuat ion breath activated one puffs twice daily 2024 active Not Available Not Available Not Avai lable Virtussin AC 10 mg-100 mg/5 mL oral liquid 01/11 completed Not Available Not Available Not Available Fluvirin 9825-1387 45 mcg (15 mcg x 3)/0.5 mL intramuscu lar suspension 04/12 completed Not Available Not Available Not Available Qvar RediHaler 40 mcg/actuat ion HFA breath activated aerosol Inhale 2 puffs twice a day by inhalati on route as needed. 10/16 completed Not Available Not Available Not Available Vitals Date Recorded Respiratory rate Systolic blood pressure Diastolic blood pressure Provider Name and Address Organization Details Last Updated DateTime 01/23/2024 16 /min 120 mm[Hg] 80 mm[Hg] SHAYNA Sloan Attn: Accounting, [address] [place], [address], [place] - [facility] 01/23/2024 16:57:45 Date Recorded Body weight Body mass index (BMI) Body height Heart rate Oxygen saturation Oxygen saturation in Arterial blood by Pulse oximetry Systolic blood pressure Diastolic blood pressure Provider Name and Address Organization Details Last Updated DateTime 84048.2 2 g 24.4 kg/m2 157.48 cm 89 /min 98 % 98 % 112 mm[Hg] 64 mm[Hg] Colleen Malik MA [facility] 4 16:31:42 Date Recorded Body height Provider Name an d Address Organization Details Last Updated DateTime 01/25/2017 157.48 cm Samantha Kimble PA-C Attn: Accounting,[address] [facility], [place], [address], [facility] 01/25/2017 11:37:47 Date Recorded Body height Body mass index (BMI) Body weight Oxygen saturation Oxygen saturation in Arterial blood by Pulse oximetry Heart rate Body temperature Systolic blood pressure Diastolic blood pressure Provider Name and Address Organization Details Last Updated DateTime 8 157.48 cm 21.9 kg/m2 04371.0 8 g 99 % 99 % 85 /min 98.7 [degF] 102 mm[Hg] 62 mm[Hg] Rocío Bazan MA [facility] 8 15:04:48 Date Recorded Body height Body mass index (BMI) Body weight Respiratory rate Oxygen saturation Oxygen saturation in Arterial blood by Pulse oximetry Heart rate Systolic blood pressure Diastolic blood pressure Provider Name and Address Organization Details Last Updated DateTime 4 157.48 cm 24.9 kg/m2 16579.5 6 g 18 /min 99 % 99 % 81 /min 126 mm[Hg] 82 mm[Hg] Tacos García MA [facility] 4 16:43:01 Date Recorded Body height Body mass index (BMI) Body weight Oxygen saturation Oxygen saturation in Arterial blood by Pulse oximetry Heart rate Body temperature Systolic blood pressure Diastolic blood pressure Provider Name and Address Organization Details Last Updated DateTime 7 157.48 cm 21.9 kg/m2 62866.2 9 g 98 % 98 % 124 /min 98 [degF] 120 mm[Hg] 76 mm[Hg] Bettie Rojas MA [facility] 7 15:15:42 Social History Question Answer Notes LastModified by Organizat ion Details LastModified Time Tobacco Smoking Status Never Smoker Stephon Cook shaylee, [facility] 10/28/2014 17:03:25 Do You Have An Advance Directive? No Information not available 10/27/2016 Are You Blind Or Do You Have Difficulty Seeing? No Glasses Information not available 08/07/2024 What Is Your Level Of Caffeine Consumption? Moderate [email or web address] Information not available 10/28/2014 Can Child Swim? Yes Informati on not available 10/27/2016 How Much Tobacco Do You Chew? None Information not available 10/27/2016 In The 14 Days Before Symptom Onset, Have You Had Close Contact With A Laboratory-confir med COVID-19 While That Case Was Ill? No Information not available 01/20/2024 In The 14 Days Before Symptom Onset, Have You Had Close Contact With A Person Who Is Under Investigation For COVID-19 While That Person Was Ill? No Information not available 01/20/2024 Have You Been To An Area Known To Be High Risk For COVID-19? No Information not available 01/20/2024 Are You Deaf Or Do You Have Serious Difficulty Hearing? No Information not available 08/07/2024 What Type Of Diet Are You Following? REGULAR Information not available 10/27/2016 Education 2 Year College Information not available 10/27/2016 Swimming/diving Yes Informati on not available 10/27/2016 Are There Any Guns Present In Your Home? No Information not available 10/27/2016 Hard Of Hearing Or Deaf In One Or Both Ears? No Information not available 10/27/2016 Legally Blind In One Or Both Eyes? No Information no t available 10/27/2016 Live Alone Or With Others? With Others Information not available 10/27/2016 Marital Status Single Informatio n not available 10/27/2016 What Was The Date Of Your Most Recent Tobacco Screening? 08/07/2024 Information not available 08/07/2024 Performs Monthly Self-breast Exam? No Information no t available 10/27/2016 Do You Use Protection During Sex? Usually Information not available 10/27/2016 What Is Your Relationship Status? Information not available 01/23/2024 Do You Use Your Seat Belt Or Car Seat Routinely? Yes Information not available 01/20/2024 Seat Belts Used Routinely Yes Information not available 10/27/2016 Are You Sexually Active? Yes Information not available 10/27/2016 Smoke Alarm In Home Yes Information not available 10/27/2016 Do You Have Smoke And Carbon Monoxide Detectors In Your Home? Yes Information not available 01/20/2024 Are You Passively Exposed To Smoke? No Information no t available 10/27/2016 General Stress Level Medium Information not available 10/27/2016 Do You Use Sunscreen Routinely? Yes Information not available 10/27/2016 Has Tobacco Cessation Counseling Been Provided? Yes Information not available 01/20/2024 On What Date Was Tobacco Cessation Counseling Provided? 08/07/2024 Information not available 08/07/2024 Sex: Unknown Functional Status Question Answer Note LastModified by Organizat ion Details LastModified Time Do you use any illicit or recreational drugs? No Information not available 01/23/2024 Do you or have you ever used any other forms of tobacco or nicotine? No Information not available 01/23/2024 What is your level of alcohol consumption? None [email or web address] Information not available 10/28/2014 Are you currently employed? Yes Information not available 10/27/2016 Are you able to care for yourself? Yes Information n ot available 10/27/2016 What is your exercise level? Occasional Information not available 10/27/2016 Mental Status None recorded. Family History Relationship Description Onset Age of this Age Resolved Age Notes LastModified by Organization Details LastModified Time Father Hypercholest erolemia [email or web address] Not available 03/26 16:19:28 Father Hypertensive disorder mebyma Not available 2023 16:27:48 Mother Arthritis [email or web address] Not avail able 04/10/2015 16:19:28 Mother Disorder of thyroid gland mebyma Not available 2023 16:27:56 Medical History Condition Response Headaches Y Gynecological History Statement/Question Response Flow Light Date of LMP 08/07/2024 Frequency of Cycle (Q days) 28 Menses Monthly Y Duration of Flow (days) 5 Age at Menarche 12 Current Control Method None LMP Approximate Obstetrics History GPAL:G 1 P 1 0 0 1 Type Value Full Term 1 Living 1 Total 1 Immunizations Vaccine Type Date Status Note Provider Nam e and Address Organization Details Recorded Time Hib, unspecified formulation 5 completed Tacos García [place], [place] [facility] 08/07/2024 16:40:07 Hib, unspecified formulation 4 completed Tacos Garc[place] [facility] 08/07/2024 16:40:07 Hib, unspecified formulation 4 completed Tacos Garc[place] [facility] 08/07/2024 16:40:07 meningococcal ACWY, unspecified formulation 2 completed Tacos Garc[place] [facility] 08/07/2024 16:40:07 MMR 5 completed Tacos Garc[place] [facility] 08/07/2024 16:40:07 MMR 9 completed Tacos Garc[place] [facility] 08/07/2024 16:40:07 Tdap 3 completed Tacos Garc[place] [facility] 08/07/2024 16:40:07 Tdap 8 completed Tacos Garc[place] [facility] 08/07/2024 16:40:07 DTP 5 completed Tacos Garc[place] [facility] 08/07/2024 16:40:07 DTP 4 completed Tacos Garc[place] [facility] 08/07/2024 16:40:07 DTP 5 completed Tacos Garc[place] [facility] 08/07/2024 16:40:07 DTP 4 completed Tacos [place] [facility] 08/07/2024 16:40:07 OPV 5 completed Tacos Garc[place] [facility] 08/07/2024 16:40:07 OPV 4 completed Tacos [place] [facility] 08/07/2024 16:40:07 OPV 4 completed Tacos Garc[place] [facility] 08/07/2024 16:40:07 Influenza, split virus, trivalent, preservative 7 completed Tacos [place] [facility] 08/07/2024 16:40:07 Influenza, split virus, trivalent, preservative 2 completed Tacos Garc[place] [facility] 08/07/2024 16:40:07 HPV, quadrivalent 0 completed Tacos [place] [facility] 08/07/2024 16:40:07 Hep B, adolescent or pediatric 5 completed Tacos [place] [facility] 08/07/2024 16:40:07 Hep B, adolescent or pediatric 4 completed Tacos [place] [facility] 08/07/2024 16:40:07 Hep B, adolescent or pediatric 5 completed Tacos Garc[place] [facility] 08/07/2024 16:40:07 Hep B, adolescent or pediatric 4 completed Tacos [place] [facility] 08/07/2024 16:40:07 Hep B, adult 4 completed Tacos Garc[place] [facility] 08/07/2024 16:40:07 Hep B, adult 4 completed Tacos [place] [facility] 08/07/2024 16:40:07 Hep B, adult 4 completed Tacos [place] [facility] 08/07/2024 16:40:07 DTaP, unspecified formulation 9 completed Tacos [place] [facility] 08/07/2024 16:40:07 Influenza, split virus, quadrivalent, PF 8 completed Tacos [place] [facility] 08/07/2024 16:40:07 Hep A, unspecified formulation 0 completed Tacos Garc[place] [facility] 08/07/2024 16:40:07 Hep A, unspecified formulation 1 completed Tacos [place] [facility] 08/07/2024 16:40:08 Tdap 8 completed Not Available [facility] 10/13/2019 02:42:31 HPV, unspecified formulation 9 completed Samantha Kimble PA-C Attn: Accounting,[address] [place], [address], [place] [facility] 10/22/2016 09:38:59 HPV, unspecified formulation 9 completed Samantha Kimble PA-C Attn: Accounting,[address] [place], [address], [place] [facility] 10/22/2016 09:39:07 HPV, unspecified formulation 0 completed Samantha Kimble PA-C Attn: Accounting,[address] [place], [address], [place] [facility] 10/22/2016 09:39:14 Past Encounters Encounter ID Performer Location Encounter Start Date Encounter Closed Date Diagnosis/Indication Diagnosis SNOMED-CT Code Diagnosis ICD10 Code Diagnosis Note [id number] MD Radha Pompa (Adult Med) [address] [place] [phone] 10/28/2014 15:51:26 10/28/2014 17:53:00 Headache 56714290 Eruption 831845399 Atypical chest pain 864023226 Heartburn 54162217 [id number] MD Radha Pompa (Adult Med) [address] [place] [id number] 12/26/2014 10:28:47 12/27/2014 08:51:32 Atypical chest pain 403477754 Dizziness 172786879 [id number] MD Radha Pompa (Adult Med) [address] [place] [address]94[address] 04/10/2015 16:12:28 04/10/2015 17:36:41 Palpitations 55622200 Possible panic disorder Will observe [id number] MD Radha Corbin (Adult Med) [address] [place] [address] 10/22/2016 08:55:46 10/22/2016 12:07:02 Upper respiratory infection 98963600 J06.9 Advised to drink plenty of waterRestP t given fluticason e to open nasal passages and allow mucus to drainPt given guaifenesi n to dry out mucus [id number] MD Radha Corbin (SCIENTIFIC MANAGER) [address] [place] [id number] 10/27/2016 15:19:15 10/27/2016 16:02:41 Gynecologic examination 67916839 Z01.419 Acne 03136352 L70.9 RTC 1 month for f/u [id number] MD Radha Corbin (Adult Med) [address] [place] [id number] 01/11/2017 11:06:32 01/11/2017 13:23:39 Screening for disorder 727883753 Z13.9 Patient states that she had chicken pox, so will draw titer Tuberculos is screening 720639938 Z11.1 Patient to RTC in 48-72 hours to have PPD readPatien t to RTC in 2 weeks for nurse only appointmen t for TB #2 placement History an d physical examination, school [id number] Z02.0 Cleared for school pending two step PPD results [id number] MD Radha Corbin (Adult Med) [address] [place] [address] 01/25/2017 11:04:33 01/26/2017 09:56:24 Tuberculosis screening [id number] Z11.1 Patient to RTC in 48-72 hours to have PPD readPatien t to RTC in 2 weeks for nurse only appointmen t for TB #2 placement [id number] MD Radha Souza (Adult Med) [address] [place] [address] 09/21/2017 15:05:44 09/21/2017 17:37:28 Generalized aches and pains 65570983 R52 Take ibuprofen PRN Temporoman dibular joint disorder 61213148 M26.609 Will refer to oral surgeon per patient's request Generalize d anxiety disorder 76744604 F41.1 Advised that she needs to take time for herself during school - at least 30 minutes/da y - this could be walking, reading etc.Advise d she can make an appointmen t with a counselor if she would like.Discu ssed that there are no medication s to help with memory [id number] MD Radha Souza (Adult Med) [address] [place] [address] 04/12/2018 14:45:51 04/13/2018 09:01:08 Gastroesophageal reflux disease without esophagitis 208735604 K21.9 Advised to stay away from spicy and greasy foodsAdvis ed to stay away from fatty foodsDo not eat within 2 hours of going to bedStay sitting up after mealsNo smoking Active or passive immunization 635824568 Z23 Allergic rhinitis 760076 04 J30.2 [id number] Antonio Edwards MD [facility] [employer] [address] [place] [address] 01/23/2024 16:18:03 01/23/2024 17:01:19 Allergic rhinitis 30599493 J30.9 pt request mold allergen panel evaluation . Long-term drug therapy [id number] Z79.899 CMP lab due Cholesterol screening 27 4234589 Z13.220 fasting lipids due Family his tory of systemic lupus erythematosus [id number] 0546093 Z82.69 pt requests DIONE screening. Iron defic iency anemia 80097017 D50.9 due for updated iron studies and cbc Left upper quadrant pain 066155390 R10.12 as above. Acid reflux 895094259 K2 1.9 start famotidine 40mg daily. if 14 days of tx is completed and LUQ pain continues then she will get the abdominal u/s. [id number] Antonio Edwards MD [facility] [employer] [address] [place] [address] 08/07/2024 16:05:27 08/08/2024 13:12:29 Upper abdominal pain 16114530 R10.10 send for h.pylori breath testing, UGI series and start omeprazole . Irritable bowel syndrome 46611475 K58.9 mostly constipati on, skips days or minimal movement. increase water by 1 bottle daily. add good fiber source. Health Concerns Section Related Observation LastModified by Organization Detai ls LastModified Time None Recorded Concern Status LastModified by Organization Details LastModified Time None Recorded Advance Directives Directive N: Payers Encounter Date Sequence Insurance Name Policy Number Policy Saldivar Covered Member ID Saldivar Member ID Guarantor Name 01/25/2017 1 [facility] PRIOR TO 03/26/2021 (MEDICAID REPLACEMENT - HMO) Calista Heredia [id number] Calista Parks 09/21/2017 1 [facility] PRIOR TO 03/26/2021 (MEDICAID REPLACEMENT - HMO) Calista Ruiz [id number] Calista Parks 04/12/2018 1 [facility] PRIOR TO 03/26/2021 (MEDICAID REPLACEMENT - HMO) Calista Heredia [id number] Calista Parks 01/23/2024 1 [employer] (PPO) [id number] Calista Heredia [id number] Calista Parks 08/07/2024 1 [facility] [id number] Calista Parks [id number] Calista Parks Notes Date Note Type Note Provider Name and Address Organization Details Recorded Time 01/25/2017 text/html TB #2 placement Samantha Kimble PA-C Attn: [address] [place], [address], [place] [facility] 01/25/2017 11:38:59 09/21/2017 text/html 22YO fe male presents with various complaints. She states that she is wondering if when she starts her period if a little bit of brown discharge prior to red blood is normal. She also states that her left knee bothers her when she is up on her feet a lot. 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 States that gamez she is on her feet for a while, her left knee seems to swell a bit. States that there was no trauma to her knee. Rest helps. She has not tried anything for the pain or swelling. She also states that with the weather changes she is experiencing a lot of aches and pains all over her bodya and knows that it is 2/2 the weather.She is also requesting a referral to an oral surgeon for TMJ. States that her dentist dx'ed her with this and had referred her somewhere but her insurance told her that she needs a referral from her PCP. Lastly, she states that she was very nervous around finals time and is wondering if there is a medication her help her with her memory. States that she was studying non-stop for final and feels like her anxiety greatly increased at that time. Denies SI/HI. Samantha Kimble PA-C Attn: [address] [place], [address], [facility] 09/22/2017 09:10:19 04/12/2018 text/html Reflux/GERDRepor suly bypatient.Symptomshea rtburn; diurnal;postprandial pain Quality:burning;stabb ing Severity:same Duration:present for 1-6 months Onset/Timing:gradual onset; daily; occurs immediately after meals Context:non-smoker; no drug/alcohol abuse; no drug alcohol withdrawal;related to spicy foods Alleviating Factors:antacids (slightly); H2 jose Associated Symptoms:no frequent coughing; no feeling of fullness/mass in throat; no hoarseness; no food getting stuck; no belching/burping; no nausea; no vomiting; not vomiting blood; no regurgitation; no shortness of breath; no chest pain; no heartburn; no difficulty swallowing; no pain when swallowing; no bad taste; no decreased appetite; no weight loss; no black/tarry stools; no fatigue; no throat painSinusitis/Allergy Reported bypatient.Location:[facility] Associated Symptoms:no nasal discharge; no fever; no weight loss; no hemoptysis; no hematemesis; no feeling of strangulation; no nausea or vomiting; no headache; no facial pain; no sore throat; no thick phlegm in throat; not constantly clearing the throat; no nasal discharge; no nasal passage blockage; no ear fullness; no nasal itching; no eye itching; no pain behind the eyes; no skin itching;difficulty breathing;sinus pain cheek Onset/Timing:gradual onset; recurring Quality:no pain; no itching; no hoarseness; no throbbing; minimal discomfort; improving;congested Duration:long standing Severity:no pain; does not limit daily activities; no frequent breathing through the mouth; no nosebleeds (epistaxis); no snoring; mild Context:no recent upper respiratory infection; no recent sick contacts; not worse around animals; not worse around pollen; not worse around dust; not worse around molds; not worse with environmental exposure; not worse when mowing grass; not worse with certain foods; not worse with odors;worse with seasonal allergen exposure Risk Factors:no current smoking or tobacco use; no history of smoking; no increased stress; no family history of allergies; no history of nasal trauma; no allergy to aspirin; no history of nasal polyps; no history of asthma; no chemotherapy; no DM; no HIV; no immunodeficiency Aggravating factors:not worse with change in medication; not worse during an upper respiratory infection (a cold); not worse when allergies are active 23YO female presents c/o heartburn x 1 month that is helped minimally Zantac and feeling congested/issues breathing x 1-2 months. Samantha Kimble PA-C Attn: [address] [place], [address], [facility] 04/12/2018 15:36:09 01/23/2024 text/html Abdominal PainReported bypatient.Location:[facility] Quality:sharp Severity:moderate Duration:intermittent Onset/Timing:wax/wane Associated Symptoms:no fever; no chills; no blood in the urine; no heartburn; no shortness of breath Other:denies possible pregnancyNotes:remote hx of reflux with , but not currently. sometimes can wake her at night. she is not taking any antacid at this time. SHAYNA Sloan Attn: [address] [place], [address], [facility] 01/23/2024 19:08:24 08/07/2024 text/html Abdominal PainReported bypatient.Location:[facility] Quality:sharp Severity:moderate Duration:intermittent Onset/Timing:wax/wane Associated Symptoms:no fever; no chills; no blood in the urine; no heartburn; no shortness of breath Other:denies possible pregnancyNotes:remote hx of reflux with , but not currently. sometimes can wake her at night. she is not taking any antacid at this time. SHAYNA Sloan Attn: [address] [facility], [place], [address], [place] [facility] 08/24/2024 15:40:05 OBGyn Episode Ob Episode Information Episode Created Date Number of Fetuses Patient Bloodtype Patient rh Status Prepregnancy Weight lbs Domestic Partner Domestic Partner Phone Father Name Bounty Trapper Status 01/23/20 24 1 CLOSED Fetus Data First Name Last Name Admitted to NICU Weight (g) Sex Living Outcome Pediatric Complications Fetus ID Race Codes Race Delivery Type 3912.23 1 M Full Term [id number] Eleno Calculation Initial Eleno Date Initial Exam Date Initial Exam Provider Initial Ultrasound Date Last Menstrual Period Date Ultra Sound Weeks Gestation 0 Eighteen To Twenty Week Eleno Update Ultra Sound Date Fundal Height At Umbil Quickening Date Ultra Sound Latest Weeks Gestation Final Eleno Confirmed By Final Eleno Confirmed Date Final Eleno Date Ultra Sound Latest Days Gestation 0 0 Menstrual History Last Menstrual Date Menses Monthly On Bcp Conception Prior Menses Frequency Hcg Plus Date Menarche Onset Age Delivery Information Delivery Date Delivery Type Labor Anesthesia Weeks Gestation Incision Type Labor Labor Length Hrs Delivered By Post Complications Tubal Sterilization Discharge Date Comments 3 Regional- idural Discharge Information Feeding Method Contraceptive Method Maternal HG B and HCT Levels
--- OUTSIDE RECORDS SUMMARY | 2025-02-22 13:11 | XMS_ITS | Data Portability ---
Author Organization [employer] , [facility] Address [address] [place] [address] Assessment No assessment recorded. Plan of Treatment Reminders Order Date Submit Date Provider Last Modified By Organization Details Last Modified Time Details Appointments None recorded. Lab test, urine 2021 022 [email or web address] [facility], [address] [place], [address], 2 12:16:49 culture, urine 2021 022 [email or web address] [employer] [facility], [address] [place], [address], 2 18:58:48 CT + NG DNA, PCR, unspecifie d specimen 2021 022 [email or web address] [facility], [address] [place] [address], [address], 2 17:34:39 bacterial vaginosis + vaginitis panel, vaginal 2021 022 [email or web address] [id number] [facility], [address] [place] [address], [address], 3 03:39:02 TSH + free T4, serum 2021 022 [email or web address] [employer] [facility], [address] [place], [address], 2 15:17:41 T3, free, serum or plasma 2021 [facility], [address] [place], [address], 15:17:41 HbA1c (hemoglobi n A1c), blood 2021 [facility], [address] [place], [address], 15:17:41 prolactin, serum 2021 [facility] [employer] [facility], [address] [place], [address], 15:17:42 unlisted lab - anti-mulle deyanira hormone (amh), female 2021 [facility] [employer] [facility], [address] [place], [address], 15:17:42 lh + FSH, serum 2021 [facility] [employer] [facility], [address] [place], [address], 15:17:42 estradiol, serum 2021 [facility] [employer] [facility], [address] [place], [address], 15:17:42 Referral None recorded. Procedures None recorded. Surgeries None recorded. Imaging US, obstetric, transvagin al 2021 022 melanie Not available 19:03:35 US, breast, unilateral - left breast, 1cm irregular mobile mass at 1:00 2021 [facility], [address] [place] [address], [address], 14:08:46 Medication Orders None recorded. Patient TargetsNo targets recorded. Patient InstructionsNo instructions recorded. Reason for Referral None Reported. Results Created Date Observation Date Name Description Value Unit Range Abnormal Flag Note LastModifiedBy Organization Detail LastModifiedTime 12/11/19 22 12/11/2021 VAGIN ITIS PLUS STD PANEL bacterial vaginosis BV neg negati ve Not Available [address], [address], 12/12/2021 10:42:11 12/11/19 22 12/11/2021 VAGIN ITIS PLUS STD PANEL sourav species C. spp POS negati ve positive Not Available [address], [address], 12/12/2021 10:42:11 12/11/19 22 12/11/2021 VAGIN ITIS PLUS STD PANEL sourav glabrata C. gla neg negati ve Not Available [address], [address], 12/12/2021 10:42:11 12/11/19 22 12/11/2021 VAGIN ITIS PLUS STD PANEL trichomonas vaginalis CV/TV TRICH neg negati ve Not Available [address], [address], 12/12/2021 10:42:11 12/11/19 22 12/11/2021 VAGIN ITIS PLUS STD PANEL chlamydia trachomatis CT neg negati ve If both Pap and Endoc ervic al swabs are colle cted, the Prese rvCyt Solut ion liqui d Pap speci men must be colle cted befor e the endoc ervic al swab speci men. Not Available [address], [address], 12/12/2021 10:42:11 12/11/19 22 12/11/2021 VAGIN ITIS PLUS STD PANEL neisseria gonorrhoeae GC neg negati ve If both Pap and Endoc ervic al swabs are colle cted, the Prese rvCyt Solut ion liqui d Pap speci men must be colle cted befor e the endoc ervic al swab speci men. Not Available Gisela Lionel [address] [facility], [place], [address], 12/12/2021 10:42:11 04/06/20 22 04/06/2022 pregn behzad test, urine HCG positi ve Not Available [facility] [address] [facility], [place], [address], 04/06/2022 17:46:12 04/08/20 22 04/06/2022 US, obste tric, trans vagin al No observ ation record ed. [email or web address] Kaitlyn [address], [place], [address], 05/22/2022 01:58:27 Result Notes None recorded. Problems Name Problem SNOMED Code Status Onset Date Resolution Date Notes Provider Name and Address Organization Details Recorded Time Sampling of vagina for Papanico laou smear Completed 202012/10/2021 Encounter for gynecolog ical examinati on (general) (routine) without abnormal findings; Progress: Stable Added By: Gloria Wei Add to Current Problems: YES ProblemSt atus: Current Sarita june, [employer] [facility] 2 14:35:52 Screenin g for malignan t neoplasm of cervix Completed 202012/10/2021 Encounter for screening for malignant neoplasm of cervix; Progress: Stable Added By: Gloria Wei Add to Current Problems: YES ProblemSt atus: Current Sarita june, [facility] 2 14:35:53 Asthma 261592803 Active 2021 IVAN PETERSEN, CNM [address] [facility], [place], [address], [employer] [facility] 2 12:14:10 Problem Notes None recorded. Procedures Surgical History Date Name Laterality Status Provider Name and Address Organization Details Recorded Time Date of Last Pap Smear completed Monae Fernando [facility] 12/09/2021 01:27:58 Imaging Results None recorded. Procedure Notes None [...] Available Not Available Not Available amoxicillin 875 mg-potassiu m clavulanate 125 [...] Updated DateTime 2 157.48 cm 24.5 kg/m2 97314.3 8 g 96.7 [degF] 110 mm[Hg] 60 mm[Hg] Vee Novak [employer] [facility] 2 14:41:43 Social History Question Answer Notes LastModified by Organizat ion Details LastModified Time Tobacco Smoking Status Never Smoker Vee Novak shaylee, [employer] [facility] 12/10/2021 14:43:33 Are You Blind Or Do You Have Difficulty Seeing? No Information not available 12/10/2021 Are You Deaf Or Do You Have Serious Difficulty Hearing? No Information not available 12/10/2021 What Type Of Diet Are You Following? REGULAR Information not available 12/10/2021 What Is Your Relationship Status? Information not available 12/09/2021 Are You Sexually Active? Yes Information not available 12/09/2021 Sex: Unknown Functional Status Question Answer Note LastModified by Organizat ion Details LastModified Time Do you use any illicit or recreational drugs? No Information not available 12/10/2021 Do you or have you ever used any other forms of tobacco or nicotine? No [email or web address] Information not available 12/10/2021 What is your level of alcohol consumption? None [email or web address] Information not available 12/10/2021 Are you currently employed? 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 [email or web address] Information not available 12/20/2021 What is your exercise level? None Information not available 12/10/2021 Mental Status None recorded. Family History Relationship Description Onset Age of this Age Resolved Age Notes LastModified by Organization Details LastModified Time Father No current problems or disability [email or web address] Not available 01:29:32 Mother No current problems or disability [email or web address] Not available 01:29:32 Maternal Grandmother Female infertility ki Not available 13:38:50 Unspecified Relation Female infertility cousin ki Not available 13:38:50 Medical History Condition Response [...] SNOMED-CT Code Diagnosis ICD10 Code Diagnosis Note [id number] Natalia Barrett MD [facility] [address] [place] [address] 12/10/2021 14:30:07 12/10/2021 16:40:49 Vaginal irritation 076878003 N89.8 C/o vaginal pruritus/b urning since completing a course of steroids for a sinus infection. Pelvic exam wnl today, SureSwab obtained and sent, treat PRN based on results. Pain of breast 17399940 N64.4 C/o left breast pain x3 months. ~1cm irregular, mobile, tender left breast mass at 1:00, breast u/s ordered for further evaluation . Female infertility 49035 08 N97.9 Calista has been trying to conceive x13 months without success. She reports regular periods q month, has been getting positive ovulation results each month with ovuation prediction kits. Interested in infertilit y evaulation . Bloodwork ordered today: HbA1C, TFTs, FSH/LH, PRL, AMH. 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 Semen analysis ordered for her (Derrick Parks, 07/19/1991 ). Also recommende d HSG and pelvic u/s. Instructed to call with LMP to schedule HSG, message sent to surgical scheduling . Patient to follow up in 1-2 weeks for pelvic u/s, u/s PA requested. [id number] IVAN PETERSEN, NESTOR [facility] [address] [place] [address] 04/06/2022 16:08:58 04/07/2022 10:14:36 [id number] Z33.1 IUP @ 8.1 weeks with +FHT 174. Discussed US findings. NOB packet given, reviewed PNV/diet/O TCs/exerci se/travel/ sex, oriented to office procedures . Labs today. RTO 4 wks. Discussion of asthma in as well as current medication s including benefits of managed asthma outweighin g theoretica l risk of medication s. SAB precaution s reviewed. Missed period 28274617 N 92.5 Health Concerns Section Related Observation LastModified by Organization Detai ls LastModified Time None Recorded Concern Status LastModified by Organization Details LastModified Time None Recorded Advance Directives Directive None Recorded Payers Insurance Date Sequence Insurance Name Policy Number Policy Saldivar Covered Member ID Saldivar Member ID Guarantor Name 04/14/2022 1 [place] N[place] Calista Heredia [id number] Calista Heredia Notes Date Note Type Note Provider Name [...] evaluation for infertility. Natalia Barrett MD [address] [facility], [place], [address], [facility] - [employer] [facility] 12/20/2021 13:46:54 OBGyn Episode No OBEpisode recorded.
--- OUTSIDE RECORDS SUMMARY | 2025-02-22 13:11 | XMS_ITS | Data Portability ---
Author Organization [place] [facility], Main Office Address [address] [place] [address] Assessment No assessment recorded. Plan of Treatment Reminders Order Date Submit Date Provider Last Modified By Organization Details Last Modified Time Details Appointments None recorded. Lab CMP, serum or plasma 2022 023 [email or web address] 4 [facility] (Lab), [address] [place], [address], 3 16:06:33 TSH, serum or plasma 2022 [email or web address] [place] [address] (Lab), [address] [place], [address], 3 16:06:33 T4, free, serum 2022 [email or web address] [place] [address] (Lab), [address] [place], [address], 3 16:06:33 lipid panel, serum 2022 023 EDWARD [facility] (Lab), [address] [place], [address], 3 14:36:13 glycohemogl obin, total, blood 2022 [email or web address] [place] [address] (Lab), [address] [place], [address], 3 16:06:33 iron + total iron-bindin g capacity (TIBC), serum 2022 023 [email or web address] 4 [facility] (Lab), [address] [place], [address], 3 16:06:32 ferritin, serum or plasma 2022 023 [email or web address] 4 [facility] (Lab), [address] [place], [address], 3 16:06:32 CBC w/ auto diff 2022 023 [email or web address] 4 [facility] (Lab), [address] [place], [address], 3 16:06:33 Referral None recorded. Procedures None recorded. Surgeries None recorded. Imaging None recorded. Medication Orders albuterol sulfate HFA 90 mcg/actuati on aerosol inhaler 2022 023 [id number], [address], [place], [place], [id number], 3 16:00:47 Flovent HFA 110 mcg/actuati on aerosol inhaler [email or web address] [place] [address] [facility], [address], [id number], 3 20:35:49 hydrocortis one 2.5 % topical cream with perineal applicator 2022 023 [facility] #70168, [address], [place], [place], [id number], 3 16:00:45 Patient TargetsNo targets recorded. Patient InstructionsNo instructions recorded. Reason for Referral None Reported. Results Created Date Observation Date Name Description Value Unit Range Abnormal Flag Note LastModifiedBy Organization Detail LastModifiedTime 09/15/20 21 09/14/2021 compl ete PFT* No observ ation record ed. [id number] Not Available 11/24/2022 23:32:07 11/25/19 22 11/23/2021 metha choli ne chall enge* No observ ation record ed. [id number] [facility] ([facility] Sched[facility]) [address] [place], [address], 11/24/2022 23:32:07 12/10/19 22 12/09/2021 CT, chest , w/o contr ast No observ ation record ed. [id number] [facility] [address] [place], [address], 11/24/2022 23:32:07 12/16/19 22 12/09/2021 CT, chest , w/o contr ast No observ ation record ed. [id number] [facility] [address] [place], [address], 11/24/2022 23:32:07 03/19/20 22 01/01/2022 MAMMO , diagn ostic , digit al, bilat eral No observ ation record ed. [id number] [facility] Add On Lab Orders [address] [place], [address], 11/24/2022 23:32:07 Result Notes None recorded. 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 Not Available [facility] 3 23:30:26 Pansinusitis 315758871 Active 2021 Not Available [facility] 3 23:30:26 Upper airway resistance syndrome 201839923 Active 2021 Not Available [facility] 3 23:30:26 Acute rhinosinusiti s 437147234 Active 2021 Not Available [facility] 3 23:30:26 Acute urinary tract infection 698961153 Active 2021 Not Available [facility] 3 23:30:26 Allergic rhinitis 01308169 Active 2021 Not Available [facility] 3 23:30:27 Chronic cough 40818814 Active 2021 Not Available [facility] 3 23:30:27 Candidiasis of vagina 68801416 Active 2021 Not Available [facility] 3 23:30:27 Asthma 025356921 Active 2022 SHAYNA Sloan [address], [place], [address] , [employer] [facility] 3 15:58:49 Iron deficiency anemia 58006070 Active 2022 SHAYNA Sloan [address], [place], [address] , [employer] [facility] 3 15:59:02 Bleeding internal hemorrhoids 26487219 Active 2022 SHAYNA Sloan [address], [place], [address] , [employer] [facility] 3 16:00:10 Iron deficiency 09226284 Active 2022 SHAYNA Sloan [address], [place], [address] , [employer] [facility] 3 18:21:33 Acute sinusitis 47009920 Active 2022 SHAYNA Sloan [address], [place], [address] , [employer] [facility] 3 11:42:05 Notes:Medical History: Pansi nusitis Problem Notes None recorded. Medical Equipment None Reported. [...] Not Available Not Available No t Available [facility] spacer USE DIRECTED active Not Available Not [...] % 97 % 76 /min 98.2 [degF] 55020.9 7 g 108 mm[Hg] 68 mm[Hg] Not Available [facility] 3 23:30:09 Date Recorded Body mass index (BMI) Body height Oxygen saturation Oxygen saturation in Arterial blood by Pulse oximetry Heart rate Body temperature Body weight Systolic blood pressure Diastolic blood pressure Provider Name and Address Organization Details Last Updated DateTime 2 25.2 kg/m2 157.48 cm 98 % 98 % 80 /min 98.2 [degF] 64418.7 5 g 110 mm[Hg] 60 mm[Hg] Not Available [facility] 3 23:30:09 Date Recorded Body mass index (BMI) Body height Oxygen saturation Oxygen saturation in Arterial blood by Pulse oximetry Heart rate Body temperature Body weight Systolic blood pressure Diastolic blood pressure Provider Name and Address Organization Details Last Updated DateTime 2 24.5 kg/m2 157.48 cm 97 % 97 % 83 /min 98 [degF] 31082.3 8 g 108 mm[Hg] 64 mm[Hg] Not Available [facility] 3 23:30:09 Date Recorded Body mass index (BMI) Body height Oxygen saturation Oxygen saturation in Arterial blood by Pulse oximetry Heart rate Body temperature Body weight Systolic blood pressure Diastolic blood pressure Provider Name and Address Organization Details Last Updated DateTime 2 26 kg/m2 157.48 cm 98 % 98 % 84 /min 97.8 [degF] 49394.1 2 g 106 mm[Hg] 70 mm[Hg] Not Available [facility] 3 23:30:09 Date Recorded Body temperature Body weight Body mass index (BMI) Body height Heart rate Oxygen saturation Oxygen saturation in Arterial blood by Pulse oximetry Systolic blood pressure Diastolic blood pressure Provider Name and Address Organization Details Last Updated DateTime 3 98.2 [degF] 45617.1 5 g 25.1 kg/m2 157.48 cm 100 /min 98 % 98 % 118 mm[Hg] 68 mm[Hg] Shawanda Parker RN [place] [facility] [place] [employer] [facility] 3 15:29:25 Social History Question Answer Notes LastModified by Organizat ion Details LastModified Time Tobacco Smoking Status Never Smoker Not Available [facility] 11/24/2022 23:28:44 Do You Have An Advance Directive? No MIGRATION.[id number] 3086 Information not available 11/24/2022 If You Are , What Was Your Level Of Alcohol Consumption Prior To ? None MIGRATION.428734 2784 Information not available 11/24/2022 Do You Wear A Helmet When Biking? No MIGRATION.577425 8658 Information not available 11/24/2022 What Is Your Level Of Caffeine Consumption? Occasional MIGRATION.959673 2443 Information not available 11/24/2022 In The 14 Days Before Symptom Onset, Have You Had Close Contact With A Laboratory-confir med COVID-19 While That Case Was Ill? No MIGRATION.624090 4548 Information not available 11/24/2022 In The 14 Days Before Symptom Onset, Have You Had Close Contact With A Person Who Is Under Investigation For COVID-19 While That Person Was Ill? No MIGRATION.088035 7418 Information not available 11/24/2022 What Type Of Diet Are You Following? REGULAR MIGRATION.091982 7332 Information not available 11/24/2022 What Is The Highest Grade Or Level Of School You Have Completed Or The Highest Degree You Have Received? [id number] MIGRATION.864084 4688 Information not available 11/24/2022 Have There Been Any Changes To Your Family Or Social Situation? No MIGRATION.436277 2476 Information not available 11/24/2022 What Is The Fluoride Status Of Your Home? Fluoridated MIGRATION.370637 5991 Information not available 11/24/2022 Are There Any Guns Present In Your Home? No MIGRATION.681123 4361 Information not available 11/24/2022 Do You Use Insect Repellent Routinely? Yes MIGRATION.668696 4910 Information not available 11/24/2022 Where Do You Live? [facility] MIGRATION.949817 9779 Information not available 11/24/2022 Do You Have A Medical Power Of Bagger Meat? No MIGRATION.563306 0208 Information not available 11/24/2022 Have You Ever Been Counseled For Unhealthy Alcohol Use? No MIGRATION.838319 6209 Information not available 11/24/2022 Do You Have Any Pets? No MIGRATION.543099 6738 Information not available 11/24/2022 What Is Your Relationship Status? MIGRATION.416845 6310 Information not available 11/24/2022 Do You Use Your Seat Belt Or Car Seat Routinely? Yes MIGRATION.858636 8767 Information not available 11/24/2022 Do You Have Smoke And Carbon Monoxide Detectors In Your Home? Yes MIGRATION.793538 3067 Information not available 11/24/2022 Are You Passively Exposed To Smoke? No MIGRATION.119341 7978 Information not available 11/24/2022 Are There Any Smokers In Your House? No MIGRATION.101759 2356 Information not available 11/24/2022 Do You Use Sunscreen Routinely? Yes MIGRATION.491127 7025 Information not available 11/24/2022 Has Tobacco Cessation Counseling Been Provided? No MIGRATION.810219 0658 Information not available 11/24/2022 Have You Recently Traveled Abroad? No MIGRATION.526840 4210 Information not available 11/24/2022 Do You Have Any Dietary Restrictions? No MIGRATION.676851 1391 Information not available 11/24/2022 Sex: Unknown Functional Status Question Answer Note LastModified by Organizat ion Details LastModified Time Do you use any illicit or recreational drugs? No MIGRATION.781852 2786 Information not available 11/24/2022 Do you or have you ever used any other forms of tobacco or nicotine? No MIGRATION.971322 9359 Information not available 11/24/2022 What is your level of alcohol consumption? Occasional MIGRATION.923610 7477 Information not available 11/24/2022 Are you currently employed? 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 Occasional MIGRATION.881538 0791 Information not available 11/24/2022 Mental Status Question Answer Note LastModified by Organizat ion Details LastModified Time Do you feel stressed (tense, restless, nervous, or anxious, or unable to sleep at night)? [id number] MIGRATION.[id number] 6 Information not available 11/24/2022 Family History Relationship Description Onset Age of this Age Resolved Age Notes LastModified by Organization Details LastModified Time Mother Arthritis MIGRATION.323 [id number] Not available 11/24/2022 23:29:02 Father Hypertensive disorder MIGRATION.102 [id number] Not available 11/24/2022 23:29:03 Father Depressive disorder MIGRATION.698 6905195 Not available 11/24/2022 23:29:03 Father Acid reflux MIGRATION.03 0 7991558 Not available 11/24/2022 23:29:03 Unspecified Relation Hypertensive disorder Patern al grandp arent & matern al grandp arent MIGRATION.854 0136097 Not available 11/24/2022 23:29:03 Unspecified Relation Arthritis Matern al grandp arent MIGRATION.382 [id number] Not available 11/24/2022 23:29:03 Unspecified Relation Myocardial infarction Matern al grandp arent MIGRATION.326 [id number] Not available 11/24/2022 23:29:03 Unspecified Relation Hyperlipidem ia Matern al grandp arent MIGRATION.260 [id number] Not available 11/24/2022 23:29:03 Unspecified Relation Disorder of thyroid gland Matern al grandp arent MIGRATION.725 0581121 Not available 11/24/2022 23:29:03 Unspecified Relation Lupus erythematosu s Matern al grandp arent MIGRATION.280 1247184 Not available 11/24/2022 23:29:03 Unspecified Relation Cerebrovascu lar accident patern al grandp arent MIGRATION.061 [id number] Not available 11/24/2022 23:29:03 Unspecified Relation Diabetes mellitus Isabelln al paco lugot MIGRATION.325 [id number] Not available 11/24/2022 23:29:03 Paternal Grandfather Myocardial infarction MIGRATION.978 5508256 Not available 11/24/2022 23:29:03 Paternal Grandmother Myocardial infarction MIGRATION.389 [id number] Not available 11/24/2022 23:29:03 Medical History Condition Response MRSA N SLEEP APNEA N ALLERGIES/HAYFEVER N LUNG DISEASE/DISORDER N INSOMNIA N HISTORY OF DRUG ABUSE N RADIATION / CHEMOTHERAPY N COPD N HIGH CHOLESTEROL / HYPERLIPIDEMIA N HYPERTHYROIDISM N BLOOD DISEASES N EAR OR HEARING PROBLEMS N HYPOTHYROIDISM N SHINGLES N DEPRESSION (INCLUDING POST ) N HAVE YOU BEEN HOSPITALIZED OR SEEN IN [facility] IN THE PAST YEAR ? N STROKE/TIA N ULCERS N OBESITY N ANEURYSM N HISTORY WITH COMPLICATIONS WITH ANESTHES IA ? N NO SIGNIFICANT PAST MEDICAL HISTORY N USE OF BLOOD THINNERS N DIABETES, TYPE N PARATHYROID DISEASE N ENT N SEASONAL ALLERGIES Y HEARTBURN / REFLUX N HEPATITIS / LIVER DISEASE N SLEEP DISORDER N HEADACHES/MIGRAINES N SEIZURES/EPILEPSY N CHF N PACEMAKER N DIZZINESS N HEART DISEASE/HEART PROBLEMS N AIDS/HIV N FRACTURES N HYPERTENSION N CANCER: SPECIFY N TOURETTE'S N BLOOD TRANSFUSION N ANESTHESIA COMPLICATIONS N ANEMIA/BLOOD DISORDER N CHRONIC EAR INFECTIONS N TUBERCULOSIS N [...] SNOMED-CT Code Diagnosis ICD10 Code Diagnosis Note [id number] SHAYNA Sloan S[facility] Internal Med [place] [address] [place] [address] 05/12/2021 00:00:00 05/26/2021 18:39:09 [id number] Dagoberto Christine MD _EDWARD_Loren IGRATION_ DEFAULT_1 _1 , 06/22/2021 00:00:00 06/22/2021 15:39:34 [id number] Dagoberto Christine MD S_[facility] [place] [address] [place] [address] 07/09/2021 00:00:00 07/09/2021 16:45:38 [id number] [facility] [place] [address] [place] [address] 10/07/2021 00:00:00 10/07/2021 16:45:46 [id number] [facility] [place] [address] [place] [address] 11/26/2021 00:00:00 11/26/2021 16:49:29 [id number] [facility] [place] [address] [place] [address] 03/01/2022 00:00:00 03/01/2022 16:36:16 [id number] SHAYNA Sloan [facility] Internal Med [place] [address] [place] [address] 06/14/2022 00:00:00 06/23/2022 21:13:47 [id number] SHAYNA Sloan [facility] [place] [address] [place] [address] 08/02/2023 15:15:48 08/02/2023 16:09:49 Adult health examination 721252298 Z00.01 well exam completed . labs ordered. Asthma 490228884 J45.90 9 refill albuterol hfa and flovent hfa 110mcg Cholesterol screening 27 8170445 Z13.220 fasting lipids due Diabetes m ellitus screening 109958379 Z13.1 a1c screening ordered Long-term drug therapy 774445068 Z79.899 routine labs ordered with thyroid panel. Iron defic iency anemia 38066673 D50.9 check iron studies. Bleeding i nternal hemorrhoids 54366711 K64.8 rx for hydrocorti sone cream applicator use. Health Concerns Section Related Observation LastModified by Organization Detai ls LastModified Time None Recorded Concern Status LastModified by Organization Details LastModified Time None Recorded Advance Directives Directive N: Payers Encounter Date Sequence Insurance Name Policy Number Policy Saldivar Covered Member ID Saldivar Member ID Guarantor Name 08/02/2023 1 [employer] [id number] Calista Heredia [id number] Calista Parks Notes Date Note Type Note Provider Name and Address Organization Details Recorded Time 06/14/2022 text/html Generic HPI TemplateReported bypatient.Notes:small , itchy, bumps on the fingers and the feet. new onset. 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 Not Available [facility] 06/23/2022 21:13:47 08/02/2023 text/html wellnessno chron ic problems SHAYNA Sloan [address] [facility] [address], [place], [address], [facility] 08/25/2023 20:46:16 OBGyn Episode No OBEpisode recorded.
[2025-02-23 02:28] LABS: Progesterone. 11.8 ng/mL
== END 2025-02-22 13:08 | disposition home or self-care (01) ==
LOC: ANHLAB 13:08
PROVIDERS: PCP Physician Assistant; Visit Provider Nurse Practitioner Obstetrics & Gynecology
DX: Z31.69 Encounter for other general counseling and advice on procreation (principal)
CPT/HCPCS: 36415; 84144

== ENCOUNTER 2025-08-21 07:37 | Outpatient (CLI) | payer OTHER, SELFPAY ==
--- OUTSIDE RECORDS SUMMARY | 2025-08-21 07:42 | XMS_ITS | Data Portability ---
Author Organization [employer] , [facility] Address [address] [place] [address] Assessment No assessment recorded. Plan of Treatment Reminders Order Date Submit Date Provider Last Modified By Organization Details Last Modified Time Details Appointments None recorded. Lab test, urine 2021 022 [email or web address] [facility], [address] [place], [address], 2 12:16:49 culture, urine 2021 022 [email or web address] [employer] [facility], [address] [place], [address], 2 18:58:48 CT + NG DNA, PCR, unspecifie d specimen 2021 022 [email or web address] [facility], [address] [place], [address], 2 17:34:39 bacterial vaginosis + vaginitis panel, vaginal 2021 022 [id number] [facility], [address] [place], [address], 3 03:39:02 TSH + free T4, serum 2021 022 [email or web address] tsumobi [facility], [address] [place], [address], 2 15:17:41 T3, free, serum or plasma 2021 [employer] [facility], [address] [place], [address], 15:17:41 HbA1c (hemoglobi n A1c), blood 2021 [facility], [address] [place], [address], 15:17:41 prolactin, serum 2021 [facility], [address] [place], [address], 15:17:42 unlisted lab - anti-mulle deyanira hormone (amh), female 2021 [employer], [address] [place], [address], 15:17:42 lh + FSH, serum 2021 [facility], [address] [place], [address], 15:17:42 estradiol, serum 2021 [employer] [facility], [address] [place], [address], 15:17:42 Referral None recorded. Procedures None recorded. Surgeries None recorded. Imaging US, obstetric, transvagin al 2021 melanie Not available 19:03:35 US, breast, unilateral - left breast, 1cm irregular mobile mass at 1:00 2021 [facility], [address] [place] [address], [address], 14:08:46 Medication Orders None recorded. Patient TargetsNo targets recorded. Patient InstructionsNo instructions recorded. Reason for Referral None Reported. Results Created Date Observation Date Name Description Value Unit Range Abnormal Flag Note LastModifiedBy Organization Detail LastModifiedTime 12/11/19 22 12/11/2021 VAGIN ITIS PLUS STD PANEL bacterial vaginosis BV neg negati ve Not Available [address], [address], 12/12/2021 10:42:11 12/11/19 22 12/11/2021 VAGIN ITIS PLUS STD PANEL sourav species C. spp POS negati ve positive Not Available [address], [address], 12/12/2021 10:42:11 12/11/19 22 12/11/2021 VAGIN ITIS PLUS STD PANEL sourav glabrata C. gla neg negati ve Not Available [address], [address], 12/12/2021 10:42:11 12/11/19 22 12/11/2021 VAGIN ITIS PLUS STD PANEL trichomonas vaginalis CV/TV TRICH neg negati ve Not Available [address], [address], 12/12/2021 10:42:11 12/11/19 22 12/11/2021 VAGIN ITIS PLUS STD PANEL chlamydia trachomatis CT neg negati ve If both Pap and Endoc ervic al swabs are colle cted, the Prese rvCyt Solut ion liqui d Pap speci men must be colle cted befor e the endoc ervic al swab speci men. Not Available [address], [address], 12/12/2021 10:42:11 12/11/19 22 12/11/2021 VAGIN ITIS PLUS STD PANEL neisseria gonorrhoeae GC neg negati ve If both Pap and Endoc ervic al swabs are colle cted, the Prese rvCyt Solut ion liqui d Pap speci men must be colle cted befor e the endoc ervic al swab speci men. Not Available [facility] [address] [place], [address], 12/12/2021 10:42:11 04/06/20 22 04/06/2022 pregn behzad test, urine HCG positi ve Not Available [facility] [address] [facility], [place], [address], 04/06/2022 17:46:12 04/08/20 22 04/06/2022 US, obste tric, trans vagin al No observ ation record ed. [email or web address] Kaitlyn [address], [place], [address], 05/22/2022 01:58:27 Result Notes None recorded. Problems Name Problem SNOMED Code Status Onset Date Resolution Date Notes Provider Name and Address Organization Details Recorded Time Sampling of vagina for Papanico laou smear Completed 202012/10/2021 Encounter for gynecolog ical examinati on (general) (routine) without abnormal findings; Progress: Stable Added By: Gloria Wei Add to Current Problems: YES ProblemSt atus: Current Sarita june, [facility] 2 14:35:52 Screenin g for malignan t neoplasm of cervix Completed 202012/10/2021 Encounter for screening for malignant neoplasm of cervix; Progress: Stable Added By: Gloria Wei Add to Current Problems: YES ProblemSt atus: Current Sarita june, [facility] 2 14:35:53 Asthma [id number] Active 2021 IVAN PETERSEN, CNM [address] [facility], [place], [address], [facility] 2 12:14:10 Problem Notes None recorded. Procedures Surgical History Date Name Laterality Status Provider Name and Address Organization Details Recorded Time Date of Last Pap Smear completed Monae Fernando [facility] 12/09/2021 01:27:58 Imaging Results None [...] index (BMI) Body weight Body temperature Systolic And Diastolic Provider Name and Address Organization Details Last Updated DateTime 12/10/2021 157.48 cm 24.5 kg/m2 80352.3 8 g 96.7 [degF] 110/60 mm[Hg] Vee Novak [facility] 14:41:43 Social History Question Answer Notes LastModified by Organizat ion Details LastModified Time Tobacco Smoking Status Never Smoker Vee Novak shaylee, [facility] 12/10/2021 14:43:33 Are You Blind Or [...] other forms of tobacco or nicotine? No [email or web address] Information not available 12/10/2021 What is your level of alcohol consumption? None [email or web address] Information not available 12/10/2021 Are you currently employed? 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 None Information not available 12/10/2021 Mental Status None recorded. Family History Relationship Description Onset Age of this Age Resolved Age Notes LastModified by Organization Details LastModified Time Father No current problems or disability [email or web address] Not available 01:29:32 Mother No current problems or disability [email or web address] Not available 01:29:32 Maternal Grandmother Female infertility [email or web address] Not available 13:38:50 Unspecified Relation Female infertility [...] Diagnosis SNOMED-CT Code Diagnosis ICD10 Code Diagnosis IMO Codes Diagnosis Note [id number] Natalia Barrett MD [facility] [address] [place] [address] 12/10/2021 14:30:07 12/10/2021 16:40:49 Vaginal irritation 899444372 N89.8 C/o vaginal pruritus/b urning since completing a course of steroids for a sinus infection. Pelvic exam wnl today, SureSwab obtained and sent, treat PRN based on results. Pain of breast 34151309 N64.4 C/o left breast pain x3 months. ~1cm irregular, mobile, tender left breast mass at 1:00, breast u/s ordered for further evaluation . Female infertility 82043 08 N97.9 Calista has been trying to conceive x13 months without success. She reports regular periods q month, has been getting positive ovulation results each month with ovuation prediction kits. Interested in infertilit y evaulation . Bloodwork ordered today: HbA1C, TFTs, FSH/LH, PRL, AMH. 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 Semen analysis ordered for her (Derrick Parks, 07/19/1991 ). Also recommende d HSG and pelvic u/s. Instructed to call with LMP to schedule HSG, message sent to surgical scheduling . Patient to follow up in 1-2 weeks for pelvic u/s, u/s PA requested. [id number] IVAN JOSE FRANCISCO PETERSEN CNM [facility] [address] [place] [address] 04/06/2022 16:08:58 04/07/2022 10:14:36 [id number] Z33.1 IUP @ 8.1 weeks with +FHT 174. Discussed US findings. NOB packet given, reviewed PNV/diet/O TCs/exerci se/travel/ sex, oriented to office procedures . Labs today. RTO 4 wks. Discussion of asthma in as well as current medication s including benefits of managed asthma outweighin g theoretica l risk of medication s. SAB precaution s reviewed. Missed period [id number] N 92.5 Health Concerns Section Related Observation LastModified by Organization Detai ls LastModified Time None Recorded Concern Status LastModified by Organization Details LastModified Time None Recorded Advance Directives Directive None Recorded Payers Insurance Date Sequence Insurance Name Policy Number Policy Saldivar Covered Member ID Saldivar Member ID Guarantor Name 04/14/2022 1 [place] Calista Heredia [id number] Calista Heredia Notes Date Note Type Note Provider Name and Address Organization Details Recorded Time 12/10/2021 text/html Breast PainRepor suly by PatientHPIFor location, patient reportsleft. For onset/timing, patient reports>1 month. For quality, patient reportssharpYemi Grigsby is here with multiple complaints today. [...] further evaluation for infertility. Natalia Barrett MD [facility] [place], [address], [facility] [employer] 12/20/2021 13:46:54 04/06/2022 text/html Confirmation VisitReported by Patient IVAN PETERSEN CNM [facility] [place], [address], [facility] 04/13/2022 12:17:07 OBGyn Episode No OBEpisode recorded.
[2025-08-21 08:33] LABS: Hematocrit 40.6 % (37.0-47.0); Hemoglobin 13.1 g/dL (12.0-15.0); Immature Granulocyte Percent A 0.3 % (0-0.5); Lymphocytes Absolute Auto 1.99 K/mm3 (0.9-3.2); Mean Corpuscular HGB Conc 32.3 g/dl (32-36); Mean Corpuscular Hemoglobin 29.8 pg (26-34); Mean Corpuscular Volume 92.3 fl (80-100); Nucleated Red Blood Cells Absolute Auto 0.000 K/mm3 (0.0-0.012); Nucleated Red Blood Cells Perc 0.0 % (0.0-0.2); Platelet Count Result 311 k/mm3 (150-375); Red Blood Count 4.40 M/mm3 (4.2-5.4); White Blood Count 6.6 K/mm3 (4.5-10.0)
[2025-08-21 09:07] LABS: Alanine Aminotransferase 17 U/L (6-35); Albumin Level 4.2 g/dL (3.5-5.1); Alkaline Phosphatase 49 U/L (38-126); Anion Gap 5 mmol/L (4-12); Aspartate Amino Transferase 28 U/L (14-36); Bilirubin,Total 0.7 mg/dL (0.2-1.3); Blood Urea Nitrogen 14 mg/dL (7-17); Calcium 8.8 mg/dL (8.4-10.2); Carbon Dioxide 26 mmol/L (22-30); Chloride 107 mmol/L (98-107); Cholesterol 161 mg/dL (0-200); Estimated Glomerular Filt Rate > 60; Glucose 83 mg/dL (65-110); HDL Direct 51 mg/dL; Magnesium 2.1 mg/dL (1.6-2.3); Potassium 3.7 mmol/L (3.4-5.0); Sodium 138 mmol/L (137-145); Total Protein 7.4 g/dL (6.3-8.2); Triglycerides 58 mg/dL (<150)
[2025-08-21 09:43] LABS: Thyroid Stimulating Hormone 2.850 uIU/mL (0.465-4.680)
[2025-08-22 18:20] LABS: Hemoglobin A1C 5.0 % (<5.7)
[2025-08-23 13:37] LABS: Iron 100 ug/dL (37-170)
[2025-08-23 13:58] LABS: Free T4 Free Thyroxine 1.04 ng/dL (0.78-2.19)
[2025-08-23 14:13] LABS: Percent Iron Saturation 32 % (20-50)
[2025-08-23 14:17] LABS: Ferritin 24.30 ng/mL (6.24-137)
== END 2025-08-21 07:38 | disposition home or self-care (01) ==
LOC: ANHLAB 07:40
PROVIDERS: PCP Physician Assistant; Visit Provider Physician Assistant
DX: Z13.220 Encounter for screening for lipoid disorders (principal); Z13.1 Encounter for screening for diabetes mellitus; Z79.899 Other long term (current) drug therapy; Z86.2 Personal history of diseases of the blood and blood-forming organs and certain disorders involving the immune mechanism; E07.9 Disorder of thyroid, unspecified; R00.2 Palpitations
CPT/HCPCS: 36415; 80053; 80061; 82728; 83036; 83540; 83550; 83735; 84439; 84443; 85025

== ENCOUNTER 2025-08-29 09:46 | Outpatient (CLI) | payer OTHER, SELFPAY ==
--- NOTE | ~2025-08-29 | CT_ITS ---
EXAMINATION: CT abdomen pelvis w con DATE: 08/29/2025 10:13 INDICATION: Left upper quadrant abdominal pain TECHNIQUE: Computed tomography (CT) of the abdomen and pelvis was performed with 100 mL Omnipaque-350 intravenous contrast. Automated exposure control and iterative reconstruction technique were employed. The dose-length product was 264.14 mGy-cm. COMPARISON: None FINDINGS: Lung bases are clear. Heart size is normal. No pericardial or pleural effusion. Liver, gallbladder, spleen, pancreas, bilateral adrenal glands and kidneys are normal. Bowels including the appendix are normal. Bladder is normal. 1.6 cm right adnexal cyst/follicle. Anteverted, retroflexed uterus and left adnexa are unremarkable. Small amount of likely physiologic free fluid in the cul-de-sac. Tiny fat-containing umbilical hernia. No pathologically enlarged abdominal or pelvic lymphadenopathy. Bones are unremarkable. IMPRESSION: 1. Small amount of likely physiologic free fluid in the cul-de-sac. No acute intra-abdominal/pelvic process. Reviewed, dictated and finalized at location A. ENTIVE MAINTENANCE COORDINATOR IMPRESSION: 1. Small amount of likely physiologic free fluid in the cul-de-sac. No acute in tra-abdominal/pelvic process.
--- NOTE | ~2025-08-29 | MR_ITS ---
EXAMINATION: MR brain/brain stem wo/w con DATE: 08/29/2025 10:50 INDICATION: New onset headache TECHNIQUE: Magnetic resonance imaging (MRI) of the brain and brainstem was performed without and with 12 mL Multihance intravenous contrast. Sequences included sagittal and axial T1-weighted SE, axial diffusion-weighted FS SE, axial 3D SWAN, axial T2-weighted FLAIR, and axial T2-weighted FSE. Postcontrast axial and coronal T1-weighted SE was obtained. Apparent diffusion coefficient (ADC) maps were created. COMPARISON: None. FINDINGS: There are no areas of restricted diffusion to suggest acute infarction. No intracranial hemorrhage or abnormal intracranial mass lesion. There are scattered areas of nonspecific increased T2-weighted signal intensity in the cerebral white matter, predominantly involving the deep and periventricular whi te matter. There are no intraparenchymal signal abnormalities seen on the other pulse sequences. The ventricles are symmetric and normal in size. There are no abnormal extra-axial fluid collections. Flow voids are seen in the cerebral arteries on the T2-weighted sequences consistent with their expected patency. Mild to moderate mucosal thickening throughout the paranasal sinuses most prominent in the left maxillary, anterior left ethmoid and in the left frontal sinuses with possible occlusion of the left frontoethmoidal recess. Visualized orbits and soft tissues are unremarkable. There are no areas of abnormal enhancement on the post contrast images. IMPRESSION: 1. Normal brain. No acute intracranial process or abnormally enhancing brain lesions. 2. Mild to moderate mucosal thickening throughout the paranasal sinuses most prominent in the left maxillary, ethmoid and frontal sinuses. Correlate clinically for acute sinusitis. Reviewed, dictated and finalized at location A. RSMAN IMPRESSION: 1. Normal brain. No acute intracranial process or abnormally enhancing brain le sions. 2. Mild to moderate mucosal thickening throughout the paranasal sinuses most pr ominent in the left maxillary, ethmoid and frontal sinuses. Correlate clinicall y for acute sinusitis.
== END 2025-08-29 09:47 | disposition home or self-care (01) ==
PROVIDERS: PCP Physician Assistant; Visit Provider Physician Assistant
DX: R10.12 Left upper quadrant pain (principal); R51.9 Headache, unspecified
CPT/HCPCS: 70553; 74177; A9577; Q9967